=== PATIENT | female | born 1940 | race Caucasian/White ===

== ENCOUNTER 2018-02-20 12:54 | Emergency (ER) | payer MEDICARE, OTHER ==
[~2018-02-20] VITALS: Ht 162.6 cm; Wt 67.1 kg
[2018-02-20] MEDS ORDERED: HYDROCODONE/APAP 5-325MG TABLET PO ONE (14:00)
[2018-02-20] MEDS ORDERED: HYDROCODONE/APAP 5-325MG TABLET ONE (14:10)
--- NOTE | 2018-02-20 14:40 | NUR ---
DR BEEBE SPOKE WITH PATIENT MADE HER AWARE TEST RESULTS.
--- NOTE | 2018-02-20 14:58 | NUR ---
Patient discharged to home in stable conditon. Written and verbal after care instructions given. Patient verbalizes understanding of instructions.
[2018-02-20 15:02] VITALS: BP 111/71
== END 2018-02-20 15:03 | disposition home or self-care (01) ==
LOC: ER 12:54
DX: S39.92XA Unspecified injury of lower back, initial encounter (principal); Z88.0 Allergy status to penicillin; W01.0XXA Fall on same level from slipping, tripping and stumbling without subsequent striking against object, initial encounter; Y93.89 Activity, other specified; Y92.89 Other specified places as the place of occurrence of the external cause; Y99.8 Other external cause status
CPT/HCPCS: 72100; A4663

== ENCOUNTER 2018-10-29 14:34 | Emergency (ER) | payer MEDICARE, OTHER ==
[~2018-10-29] VITALS: Ht 160 cm; Wt 68.9 kg
--- NOTE | 2018-10-29 14:47 | NUR ---
Patient walked in to ER c/o R upper back pain x2 days s/p mechanical fall. Patient states, using her family to translate, that she tripped on a bathroom rug two days ago and fell on her right side. She states she did not seek medical attention. However, she states the pain gradually worsened and states 9/10 pain currently, especially when taking a breath. Vital signs WNL, no acute distress noted, to room 4B.
[2018-10-29] MEDS ORDERED: MORPHINE SULFATE 4 MG/1 ML DISP.SYRIN ONE (15:07)
[2018-10-29] MEDS ORDERED: ONDANSETRON 4 MG/2 ML VIAL ONE (15:08)
[2018-10-29] MEDS ORDERED: LIDOCAINE 5% PATCH TD ONE (15:08)
[2018-10-29] MEDS: ONDANSETRON 4 MG/2 ML VIAL IM ONE (15:11)
[2018-10-29] MEDS: MORPHINE SULFATE 4 MG/1 ML DISP.SYRIN IM ONE (15:11)
[2018-10-29] MEDS: LIDOCAINE 5% PATCH TD ONE (15:11)
--- NOTE | 2018-10-29 16:23 | NUR ---
Patient discharged to home in stable conditon. Written and verbal after care instructions given. Patient verbalizes understanding of instructions.
[2018-10-29 16:24] VITALS: BP 112/67
== END 2018-10-29 16:25 | disposition home or self-care (01) ==
LOC: ER 14:34
DX: S20.211A Contusion of right front wall of thorax, initial encounter (principal); F32.9 Major depressive disorder, single episode, unspecified; F41.9 Anxiety disorder, unspecified; I10 Essential (primary) hypertension; E78.00 Pure hypercholesterolemia, unspecified; Z88.0 Allergy status to penicillin; W01.0XXA Fall on same level from slipping, tripping and stumbling without subsequent striking against object, initial encounter; Y93.89 Activity, other specified; Y92.89 Other specified places as the place of occurrence of the external cause; Y99.8 Other external cause status
CPT/HCPCS: 71101; 96372 ×2; 99283; J2270; J2405; A4663

== ENCOUNTER 2020-02-25 12:46 | Emergency (ER) | payer MEDICARE, OTHER ==
[~2020-02-25] VITALS: Ht 165.1 cm; Wt 68.9 kg
[2020-02-25] MEDS ORDERED: ALBUTEROL SULFATE 8 GM HFA.AER.AD IH PRN (13:30)
[2020-02-25] MEDS ORDERED: LEVO750T46 PO ×2 (13:33)
[2020-02-25] MEDS ORDERED: VENL37.510 PO (13:33)
[2020-02-25] MEDS ORDERED: METH4TAB16 PO (13:33)
[2020-02-25] MEDS ORDERED: AMLO-212 PO (13:33)
[2020-02-25 14:00] LABS: BASOPHILS # (AUTO) 0.1 K/uL (0.0-8.0); BASOPHILS % (AUTO) 1.2 % (0.0-2.0); EOSINOPHILS # (AUTO) 0.1 K/uL (0.0-0.7); EOSINOPHILS % (AUTO) 1.5 % (0.0-7.0); HEMATOCRIT 37.1 % (31.2-41.9); HEMOGLOBIN 12.2 g/dL (10.9-14.3); LYMPHOCYTES # (AUTO) 0.8 K/uL (20.0-40.0); LYMPHOCYTES % (AUTO) 9.8 % (20.5-51.5); MEAN CORPUSCULAR HEMOGLOBIN 30.6 uug (24.7-32.8); MEAN CORPUSCULAR HGB CONC 33 g/dL (32.3-35.6); MEAN CORPUSCULAR VOLUME 93.5 fL (75.5-95.3); MONOCYTES # (AUTO) 0.4 K/uL (2.0-10.0); MONOCYTES % (AUTO) 4.5 % (0.0-11.0); NEUTROPHILS # (AUTO) 6.9 K/uL (1.8-8.9); PLATELET COUNT (AUTO) 180 K/uL (179-408); RED BLOOD CELL COUNT(AUTO) 3.97 MIL/uL (3.63-4.92); WHITE BLOOD COUNT (AUTO) 8.3 K/uL (3.8-11.8)
[2020-02-25 14:03] LABS: CARBON DIOXIDE 25 mmol/L (21-32); CHLORIDE 104 mmol/L (98-107); CREATININE 1.4 mg/dL (0.6-1.3); GLUCOSE 95 mg/dL (74-106); POTASSIUM 3.9 mmol/L (3.5-5.1); UREA NITROGEN, BLOOD 27 mg/dL (7-18)
[2020-02-25 14:16] LABS: ALANINE AMINOTRANSFERASE 21 U/L (14-59); ALKALINE PHOSPHATASE 66 U/L (50-136); ASPARTATE AMINOTRANSFERASE 12 U/L (15-37); BILIRUBIN,DIRECT 0.1 mg/dL (0.0-0.2); BILIRUBIN,TOTAL 0.3 mg/dL (0.2-1.0); TOTAL PROTEIN, SERUM 7.1 g/dL (6.4-8.2)
--- NOTE | 2020-02-25 15:05 | NUR ---
Paged Dr Brown for admit.
--- NOTE | 2020-02-25 17:54 | NUR ---
Patient does not wish to proceed with medical care recommended by Dr. Mckeon). Patient given information related to possible complications, up to and including , which could occur as a result of leaving the hospital at this time. Patient verbalizes understanding of risks involved due to leaving against medical advice. Patient has signed AMA form.
--- NOTE | 2020-02-25 17:54 | NUR ---
IV removed. Catheter intact and site benign. Pressure and 4x4 gauze applied to site. No bleeding noted.
[2020-02-25 17:55] VITALS: BP 149/78
== END 2020-02-25 17:56 | disposition left against medical advice (07) ==
LOC: ER 12:46
DX: B34.9 Viral infection, unspecified (principal); R09.02 Hypoxemia; R06.00 Dyspnea, unspecified; Z20.822 Contact with and (suspected) exposure to COVID-19; Z87.828 Personal history of other (healed) physical injury and trauma; Z90.49 Acquired absence of other specified parts of digestive tract; I11.9 Hypertensive heart disease without heart failure; Z88.0 Allergy status to penicillin; Z79.899 Other long term (current) drug therapy; F41.9 Anxiety disorder, unspecified; F32.9 Major depressive disorder, single episode, unspecified
CPT/HCPCS: 36415; 70030-TC; 71045; 83605; 85025; 85730; 87040; 93005; A4663; J3535; U0003

== ENCOUNTER 2022-07-08 11:20 | Emergency (ER) | payer MEDICARE, OTHER ==
[~2022-07-08] VITALS: Ht 162.6 cm; Wt 67.1 kg
[~2022-07-08 11:20] MED LIST: AMLO-212 PO; LEVO750T46 PO; METH4TAB16 PO; VENL37.510 PO
--- NOTE | 2022-07-08 11:39 | NUR ---
Pt seen by MD for bedside eval. Safety measures in place. Will continue to monitor.
[2022-07-08 12:16] LABS: HEMATOCRIT 36.2 % (31.2-41.9); MEAN CORPUSCULAR HEMOGLOBIN 31.2 uug (24.7-32.8); MEAN CORPUSCULAR VOLUME 93.8 fL (75.5-95.3); PLATELET COUNT (AUTO) 162 K/uL (179-408)
[2022-07-08 12:34] LABS: *BILIRUBIN,URIN NEGATIVE (NEGATIVE); *BLOOD, URINE NEGATIVE (NEGATIVE); *CLARITY,URINE CLEAR (CLEAR); *COLOR,URINE YELLOW (YELLOW); *KETONES,URINE NEGATIVE (NEGATIVE); *UROBILINOGEN,URINE 0.2 E.U./dl (NORMAL); LEUKOCYTE ESTERASE ,URINE NEGATIVE (NEGATIVE); NITRITE, URINE NEGATIVE (NEGATIVE); PH,URINE 6.5 (5.0-8.0); UGLUCOSE NEGATIVE (NEGATIVE)
[2022-07-08 12:47] LABS: CARBON DIOXIDE 29 mmol/L (21-32); CHLORIDE 105 mmol/L (98-107); CREATININE 1.3 mg/dL (0.6-1.3); GLUCOSE 95 mg/dL (74-106); POTASSIUM 4.3 mmol/L (3.5-5.1); UREA NITROGEN, BLOOD 22 mg/dL (7-18)
[2022-07-08 12:53] LABS: ALANINE AMINOTRANSFERASE 21 U/L (14-59); ALKALINE PHOSPHATASE 79 U/L (50-136); ASPARTATE AMINOTRANSFERASE 7 U/L (15-37); BILIRUBIN,DIRECT 0.1 mg/dL (0.0-0.2); BILIRUBIN,TOTAL 0.4 mg/dL (0.2-1.0); LIPASE 166 U/L (73-393); TOTAL PROTEIN, SERUM 6.9 g/dL (6.4-8.2)
[2022-07-08] MEDS ORDERED: HYDROCODONE/APAP 5-325MG TABLET PO ONE (13:30)
[2022-07-08] MEDS ORDERED: ACETAMINOPHEN/CODEINE 300-30 MG TABLET ONE (13:42)
[2022-07-08] MEDS ORDERED: ACETAMINOPHEN/CODEINE 300-30 MG TABLET PO ONE (13:45)
[2022-07-08] MEDS ORDERED: ACET1TAB23 PO (14:15)
--- NOTE | 2022-07-08 15:09 | NUR ---
Patient discharged to home in stable condition. Written and verbal after care instructions given. Patient verbalizes understanding of instructions. Gave pt report of CT scan. Stressed follow up or return to ER for worsening s/s.
[2022-07-08 15:10] VITALS: BP 115/75
== END 2022-07-08 15:10 | disposition home or self-care (01) ==
LOC: ER 11:20
DX: M54.50 Low back pain, unspecified (principal); R10.9 Unspecified abdominal pain; R07.89 Other chest pain; I10 Essential (primary) hypertension; F17.210 Nicotine dependence, cigarettes, uncomplicated; Z86.2 Personal history of diseases of the blood and blood-forming organs and certain disorders involving the immune mechanism; Z88.0 Allergy status to penicillin; Z79.2 Long term (current) use of antibiotics; Z79.899 Other long term (current) drug therapy
CPT/HCPCS: 36415; 71045; 83690; 85025; A4663

== ENCOUNTER 2022-10-11 20:11 | Inpatient (IN) | payer MEDICARE, OTHER ==
[~2022-10-11] VITALS: Ht 154.9 cm; Wt 65.8 kg
[~2022-10-11 20:11] MED LIST changes: +ACET1TAB23 PO
[2022-10-11] MEDS ORDERED: MAGNESIUM SULFATE 2 GM in IV DEXTROSE 5% 100 ML IV ONE (21:30)
[2022-10-11] MEDS ORDERED: IPRATROPIUM BROMIDE 0.5 MG/2.5 ML NEBU NEB ONE (21:30)
[2022-10-11] MEDS ORDERED: ALBUTEROL SULFATE 2.5 MG/3 ML NEBU NEB ONE (21:30)
[2022-10-11] MEDS ORDERED: IV NORMAL SALINE 1000 ML BAG IV ONE (21:30)
[2022-10-11] MEDS ORDERED: MAGNESIUM SULFATE/D5W 200 ML ONE (21:36)
[2022-10-11] MEDS ORDERED: ALBUTEROL SULFATE 2.5 MG/3 ML NEBU ONE (21:43)
[2022-10-11] MEDS ORDERED: IPRATROPIUM BROMIDE 0.5 MG/2.5 ML NEBU ONE (21:43)
[2022-10-11 21:53] LABS: BASOPHILS % (AUTO) 0.5 % (0.0-2.0); EOSINOPHILS # (AUTO) 0.2 K/uL (0.0-0.7); EOSINOPHILS % (AUTO) 2.3 % (0.0-7.0); HEMATOCRIT 35.6 % (31.2-41.9); HEMOGLOBIN 11.9 g/dL (10.9-14.3); LYMPHOCYTES # (AUTO) 1.8 K/uL (0.8-4.8); LYMPHOCYTES % (AUTO) 23.2 % (20.5-51.5); MEAN CORPUSCULAR HEMOGLOBIN 30.9 uug (24.7-32.8); MEAN CORPUSCULAR HGB CONC 34 g/dL (32.3-35.6); MEAN CORPUSCULAR VOLUME 92.2 fL (75.5-95.3); MONOCYTES # (AUTO) 0.5 K/uL (0.1-1.30); MONOCYTES % (AUTO) 6.2 % (0.0-11.0); NEUTROPHILS # (AUTO) 5.4 K/uL (1.8-8.9); NEUTROPHILS % (AUTO) 67.8 % (38.5-71.5); PLATELET COUNT (AUTO) 161 K/uL (179-408); RED BLOOD CELL COUNT(AUTO) 3.86 MIL/uL (3.63-4.92)
[2022-10-11 22:05] LABS: DIFFERENTIAL COMMENT 1
[2022-10-11 22:14] LABS: CALCIUM 8.7 mg/dL (8.5-10.1); CARBON DIOXIDE 31 mmol/L (21-32); CHLORIDE 104 mmol/L (98-107); CREATININE 1.5 mg/dL (0.6-1.3); GLUCOSE 107 mg/dL (74-106); POTASSIUM 4.3 mmol/L (3.5-5.1); SODIUM SERUM 140 mmol/L (136-145); UREA NITROGEN, BLOOD 24 mg/dL (7-18)
[2022-10-11 22:27] LABS: NT-PRO BNP 672 pg/mL (0-125)
[2022-10-11 22:55] VITALS: O2SAT 98
[2022-10-12] MEDS ORDERED: ONDANSETRON 4 MG/2 ML VIAL IV PRN (02:15)
[2022-10-12] MEDS ORDERED: levoFLOXacin 500 MG/D5W 500 MG in PREMIXED 1 EACH IV ONE (02:15)
[2022-10-12] MEDS ORDERED: MORPHINE SULFATE 2 MG/1 ML DISP.SYRIN IV PRN (02:15)
[2022-10-12 02:47] VITALS: BP 135/69; TEMP 98.1; O2SAT 94
[2022-10-12] MEDS ORDERED: IPRATROPIUM BROMIDE 0.5 MG/2.5 ML NEBU NEB PRN (03:00)
[2022-10-12] MEDS ORDERED: ALBUTEROL SULFATE 2.5 MG/3 ML NEBU NEB PRN (03:00)
[2022-10-12] MEDS ORDERED: levoFLOXacin 500 MG/D5W 100 ML ONE (03:01)
[2022-10-12] MEDS: methylPREDNISolone SOD SUCC 40 MG/ML VIAL IV SCH ×3 (06:25→21:44)
[2022-10-12 07:01] LABS: BASOPHILS % (AUTO) 0.3 % (0.0-2.0); EOSINOPHILS # (AUTO) 0.1 K/uL (0.0-0.7); HEMATOCRIT 34.9 % (31.2-41.9); HEMOGLOBIN 11.6 g/dL (10.9-14.3); LYMPHOCYTES # (AUTO) 1.6 K/uL (0.8-4.8); LYMPHOCYTES % (AUTO) 23.7 % (20.5-51.5); MEAN CORPUSCULAR HEMOGLOBIN 30.9 uug (24.7-32.8); MEAN CORPUSCULAR HGB CONC 33 g/dL (32.3-35.6); MEAN CORPUSCULAR VOLUME 93.1 fL (75.5-95.3); MONOCYTES # (AUTO) 0.5 K/uL (0.1-1.30); MONOCYTES % (AUTO) 7.5 % (0.0-11.0); NEUTROPHILS # (AUTO) 4.5 K/uL (1.8-8.9); NEUTROPHILS % (AUTO) 66.5 % (38.5-71.5); PLATELET COUNT (AUTO) 164 K/uL (179-408); RED BLOOD CELL COUNT(AUTO) 3.74 MIL/uL (3.63-4.92); RED CELL DISTRIBUTION WIDTH 14.8 % (12.3-17.7); WHITE BLOOD COUNT (AUTO) 6.8 K/uL (3.8-11.8)
[2022-10-12 07:08] LABS: DIFFERENTIAL COMMENT 1
[2022-10-12 07:36] LABS: ALANINE AMINOTRANSFERASE 16 U/L (14-59); ALBUMIN 3.1 g/dL (3.4-5.0); ALKALINE PHOSPHATASE 69 U/L (50-136); ASPARTATE AMINOTRANSFERASE 8 U/L (15-37); BILIRUBIN,TOTAL 0.3 mg/dL (0.2-1.0); CALCIUM 8.2 mg/dL (8.5-10.1); CARBON DIOXIDE 30 mmol/L (21-32); CHLORIDE 108 mmol/L (98-107); CREATININE 1.2 mg/dL (0.6-1.3); GLUCOSE 110 mg/dL (74-106); MAGNESIUM 2.5 mg/dL (1.8-2.4); PHOSPHOROUS 3.5 mg/dL (2.5-4.9); POTASSIUM 4.1 mmol/L (3.5-5.1); SODIUM SERUM 145 mmol/L (136-145); TOTAL PROTEIN, SERUM 6.5 g/dL (6.4-8.2); UREA NITROGEN, BLOOD 18 mg/dL (7-18)
[2022-10-12] MEDS ORDERED: FUROSEMIDE 20 MG/2 ML VIAL IV ONE (08:15)
[2022-10-12 08:25] VITALS: O2SAT 97
[2022-10-12] MEDS: DILTIAZEM HCL CD 120 MG CAP.SR.24H PO SCH (08:38)
[2022-10-12] MEDS ORDERED: NEBI10TA2 PO (11:08)
[2022-10-12] MEDS ORDERED: PANT40TA49 PO (11:08)
[2022-10-12] MEDS ORDERED: BUPR150T10 PO (11:08)
[2022-10-12] MEDS ORDERED: FAMO20TA8 PO (11:08)
[2022-10-12] MEDS ORDERED: PRAM0.253 PO (11:08)
[2022-10-12] MEDS ORDERED: FOLI1TAB94 PO (11:08)
[2022-10-12] MEDS ORDERED: HC A30CR11 RC (11:08)
[2022-10-12] MEDS ORDERED: MONT10TA33 PO (11:08)
[2022-10-12] MEDS ORDERED: GUAI-791 PO (11:08)
[2022-10-12] MEDS ORDERED: BENZ200C53 PO (11:08)
[2022-10-12] MEDS ORDERED: BUPR-96 PO (11:35)
[2022-10-12] MEDS ORDERED: VENL37.55 PO (11:37)
[2022-10-12 11:52] VITALS: BP 118/61; TEMP 98.8; O2SAT 98
[2022-10-12] MEDS: VENLAFAXINE XR 75 MG TAB.ER.24H PO SCH (12:43)
[2022-10-12 13:25] LABS: THYROID STIMULATING HORMONE 2.379 mIU/mL (0.358-3.740)
[2022-10-12 16:27] VITALS: BP 136/60; TEMP 97.8; O2SAT 97
[2022-10-12] MEDS: MONTELUKAST SODIUM 10 MG TABLET PO SCH (17:47)
[2022-10-12] MEDS: ACETAMINOPHEN 325 MG TABLET PO PRN (17:47)
[2022-10-12] MEDS ORDERED: CARVEDILOL 3.125 MG TABLET PO SCH (18:00)
[2022-10-12 20:30] VITALS: BP 103/55; TEMP 98.7; O2SAT 96
[2022-10-12] MEDS: FAMOTIDINE 20 MG TABLET PO SCH (21:43)
[2022-10-12] MEDS: PRAMIPEXOLE 0.25 MG TABLET PO SCH (21:43)
[2022-10-13] VITALS (8 sets, daily range): BP systolic 100–146; BP diastolic 50–73; TEMP 97.5–98.4; O2SAT 96–98
[2022-10-13] MEDS ORDERED: ZOLPIDEM 5 MG TABLET PO PRN
[2022-10-13] MEDS: levoFLOXacin 250MG /D5W 50 ML IV SCH (05:53)
[2022-10-13] MEDS: methylPREDNISolone SOD SUCC 40 MG/ML VIAL IV SCH ×3 (05:53→21:00)
[2022-10-13] MEDS: PANTOPRAZOLE SODIUM 40 MG TABLET.DR PO SCH (06:13)
[2022-10-13 06:54] LABS: HEMATOCRIT 36.7 % (31.2-41.9); HEMOGLOBIN 12.1 g/dL (10.9-14.3); LYMPHOCYTES # (AUTO) 0.8 K/uL (0.8-4.8); LYMPHOCYTES % (AUTO) 7.5 % (20.5-51.5); MEAN CORPUSCULAR HEMOGLOBIN 30.7 uug (24.7-32.8); MEAN CORPUSCULAR HGB CONC 33 g/dL (32.3-35.6); MONOCYTES # (AUTO) 0.2 K/uL (0.1-1.30); MONOCYTES % (AUTO) 1.4 % (0.0-11.0); NEUTROPHILS # (AUTO) 10.1 K/uL (1.8-8.9); NEUTROPHILS % (AUTO) 91.1 % (38.5-71.5); PLATELET COUNT (AUTO) 187 K/uL (179-408); RED BLOOD CELL COUNT(AUTO) 3.95 MIL/uL (3.63-4.92); RED CELL DISTRIBUTION WIDTH 15.2 % (12.3-17.7); WHITE BLOOD COUNT (AUTO) 11.1 K/uL (3.8-11.8)
[2022-10-13 07:05] LABS: DIFFERENTIAL COMMENT 1
[2022-10-13 07:14] LABS: ALANINE AMINOTRANSFERASE 15 U/L (14-59); ALBUMIN 3.1 g/dL (3.4-5.0); ALKALINE PHOSPHATASE 69 U/L (50-136); ASPARTATE AMINOTRANSFERASE < 5 U/L (15-37); BILIRUBIN,TOTAL 0.2 mg/dL (0.2-1.0); CALCIUM 9.2 mg/dL (8.5-10.1); CARBON DIOXIDE 28 mmol/L (21-32); CHLORIDE 105 mmol/L (98-107); CREATINE KINASE, TOTAL 30 U/L (26-192); CREATININE 1.6 mg/dL (0.6-1.3); GLUCOSE 156 mg/dL (74-106); MAGNESIUM 2.6 mg/dL (1.8-2.4); PHOSPHOROUS 3.7 mg/dL (2.5-4.9); POTASSIUM 4.6 mmol/L (3.5-5.1); SODIUM SERUM 141 mmol/L (136-145); TOTAL PROTEIN, SERUM 6.6 g/dL (6.4-8.2); UREA NITROGEN, BLOOD 31 mg/dL (7-18)
[2022-10-13] MEDS: buPROPion XL 150 MG TAB.SR.24H PO SCH (08:46)
[2022-10-13] MEDS: DILTIAZEM HCL CD 120 MG CAP.SR.24H PO SCH (08:46)
[2022-10-13] MEDS: VENLAFAXINE XR 75 MG TAB.ER.24H PO SCH (08:46)
[2022-10-13] MEDS ORDERED: VENLAFAXINE XR 37.5 MG CAP.SR.24H PO SCH (09:00)
[2022-10-13] MEDS ORDERED: AMLODIPINE 5 MG TABLET PO SCH (09:00)
[2022-10-13] MEDS ORDERED: levoFLOXacin 250MG /D5W 50 ML IV SCH (09:00)
[2022-10-13] MEDS: MONTELUKAST SODIUM 10 MG TABLET PO SCH (18:05)
[2022-10-13] MEDS: FAMOTIDINE 20 MG TABLET PO SCH (20:50)
[2022-10-13] MEDS: PRAMIPEXOLE 0.25 MG TABLET PO SCH (20:50)
[2022-10-13] MEDS: ACETAMINOPHEN 325 MG TABLET PO PRN (21:14)
[2022-10-14 04:00] VITALS: BP 120/53; TEMP 98.5; O2SAT 97
[2022-10-14] MEDS: methylPREDNISolone SOD SUCC 40 MG/ML VIAL IV SCH ×3 (05:37→14:21)
[2022-10-14] MEDS: levoFLOXacin 250MG /D5W 50 ML IV SCH (05:37)
[2022-10-14 06:06] LABS: PTH, INTACT 38 pg/mL (15-65)
[2022-10-14] MEDS: PANTOPRAZOLE SODIUM 40 MG TABLET.DR PO SCH (06:08)
[2022-10-14 07:05] LABS: BASOPHILS % (AUTO) 0.1 % (0.0-2.0); HEMOGLOBIN 11.5 g/dL (10.9-14.3); LYMPHOCYTES # (AUTO) 0.9 K/uL (0.8-4.8); LYMPHOCYTES % (AUTO) 6.8 % (20.5-51.5); MEAN CORPUSCULAR HEMOGLOBIN 30.8 uug (24.7-32.8); MEAN CORPUSCULAR HGB CONC 33 g/dL (32.3-35.6); MEAN CORPUSCULAR VOLUME 93.4 fL (75.5-95.3); MONOCYTES # (AUTO) 0.3 K/uL (0.1-1.30); NEUTROPHILS # (AUTO) 12.3 K/uL (1.8-8.9); NEUTROPHILS % (AUTO) 91.1 % (38.5-71.5); PLATELET COUNT (AUTO) 193 K/uL (179-408); RED BLOOD CELL COUNT(AUTO) 3.74 MIL/uL (3.63-4.92); RED CELL DISTRIBUTION WIDTH 14.9 % (12.3-17.7); WHITE BLOOD COUNT (AUTO) 13.5 K/uL (3.8-11.8)
[2022-10-14 07:11] LABS: DIFFERENTIAL COMMENT 1
[2022-10-14 07:32] LABS: CALCIUM 8.6 mg/dL (8.5-10.1); CARBON DIOXIDE 28 mmol/L (21-32); CHLORIDE 106 mmol/L (98-107); CREATININE 1.5 mg/dL (0.6-1.3); GLUCOSE 142 mg/dL (74-106); MAGNESIUM 2.4 mg/dL (1.8-2.4); SODIUM SERUM 141 mmol/L (136-145); UREA NITROGEN, BLOOD 40 mg/dL (7-18)
[2022-10-14] MEDS ORDERED: methylPREDNISolone SOD SUCC IV (07:41)
[2022-10-14] MEDS ORDERED: LEVO250P3 IV (07:41)
[2022-10-14] MEDS ORDERED: ALBU2.5V7 NEB (07:41)
[2022-10-14] MEDS ORDERED: DILT120C87 PO (07:41)
[2022-10-14] MEDS ORDERED: IPRA0.2S6 NEB (07:41)
[2022-10-14] MEDS: buPROPion XL 150 MG TAB.SR.24H PO SCH (10:53)
[2022-10-14] MEDS: VENLAFAXINE XR 75 MG TAB.ER.24H PO SCH (10:53)
[2022-10-14] MEDS: DILTIAZEM HCL CD 120 MG CAP.SR.24H PO SCH (10:56)
[2022-10-14 11:26] VITALS: BP 127/61; TEMP 98.1; O2SAT 97
[2022-10-14 12:07] LABS: ALBUMIN 3.1 g/dL (2.9-4.4); ALPHA-1-GLOBULIN 0.2 g/dL (0.0-0.4); ALPHA-2-GLOBULIN 0.9 g/dL (0.4-1.0); GAMMA GLOBULIN 0.9 g/dL (0.4-1.8); M-SPIKE Not Observed g/dL (Not Observed)
[2022-10-14 15:10] VITALS: BP 127/57; TEMP 98.4; O2SAT 96
[2022-10-14] MEDS ORDERED: TEMAZEPAM 15 MG CAPSULE PO PRN (21:00)
[2022-10-15] MEDS ORDERED: VENL75CA62 PO (08:35)
== END 2022-10-14 15:40 | DRG 193 ==
LOC: ER 20:11 → TELE3 23:15 → MEDSURG3 10-13 10:35
PROVIDERS: ADMIT Nurse Practitioner Acute Care; ATTEND Nurse Practitioner Acute Care
DX: J15.9 Unspecified bacterial pneumonia (principal); I50.33 Acute on chronic diastolic (congestive) heart failure; J96.20 Acute and chronic respiratory failure, unspecified whether with hypoxia or hypercapnia; N17.0 Acute kidney failure with tubular necrosis; J44.0 Chronic obstructive pulmonary disease with (acute) lower respiratory infection; J44.1 Chronic obstructive pulmonary disease with (acute) exacerbation; F17.210 Nicotine dependence, cigarettes, uncomplicated; Z99.81 Dependence on supplemental oxygen; J20.9 Acute bronchitis, unspecified; I11.0 Hypertensive heart disease with heart failure; D69.6 Thrombocytopenia, unspecified; F41.9 Anxiety disorder, unspecified; Z90.49 Acquired absence of other specified parts of digestive tract; E78.5 Hyperlipidemia, unspecified; N18.9 Chronic kidney disease, unspecified; F32.A Depression, unspecified; Z20.822 Contact with and (suspected) exposure to COVID-19
CPT/HCPCS: 36415; 71045; 83605; 83735; 83970; 84100; 84155; 84165; 84443; 84484; 85025; 93005; 93307; A4663; G0378; J1940; J1956; J2920; J3475; J3590; J7040

== ENCOUNTER 2022-10-14 15:03 | Inpatient (IN) | payer MEDICARE, OTHER ==
[~2022-10-14] VITALS: Ht 154.9 cm; Wt 68.0 kg
[~2022-10-14 15:03] MED LIST changes: +ALBU2.5V7 NEB; +BENZ200C53 PO; +BUPR-96 PO; +DILT120C87 PO; +FAMO20TA8 PO; +FOLI1TAB94 PO; +GUAI-791 PO; +HC A30CR11 RC; +IPRA0.2S6 NEB; +LEVO250P3 IV; -LEVO750T46 PO; -METH4TAB16 PO; +MONT10TA33 PO; +NEBI10TA2 PO; +PANT40TA49 PO; +PRAM0.253 PO; -VENL37.510 PO; +VENL37.55 PO; +methylPREDNISolone SOD SUCC IV
[2022-10-14 20:00] VITALS: BP 126/49; TEMP 98; O2SAT 93
[2022-10-14] MEDS ORDERED: REMEDY ESSENTIAL ZINC PASTE 113 GM TOP PRN (21:30)
[2022-10-14 22:46] VITALS: BP 126/49; TEMP 98; O2SAT 93
[2022-10-15] VITALS (8 sets, daily range): BP systolic 119–147; BP diastolic 52–72; TEMP 97.6–98.1; O2SAT 93–99
[2022-10-15] MEDS: PRAMIPEXOLE 1 MG TABLET PO SCH ×2 (00:35→20:39)
[2022-10-15] MEDS ORDERED: ACETAMINOPHEN 325 MG TABLET PO PRN (01:00)
[2022-10-15] MEDS: PANTOPRAZOLE SODIUM 40 MG TABLET.DR PO SCH (06:52)
[2022-10-15] MEDS ORDERED: VENL75CA62 PO (08:35)
[2022-10-15] MEDS: VENLAFAXINE XR 75 MG TAB.ER.24H PO SCH (09:00)
[2022-10-15] MEDS: BENZONATATE 100 MG CAPSULE PO SCH ×3 (09:00→17:07)
[2022-10-15] MEDS: MONTELUKAST SODIUM 10 MG TABLET PO SCH (09:00)
[2022-10-15] MEDS: FOLIC ACID 1 MG TABLET PO SCH (09:00)
[2022-10-15] MEDS: buPROPion XL 150 MG TAB.SR.24H PO SCH (09:00)
[2022-10-15] MEDS: DILTIAZEM HCL CD 120 MG CAP.SR.24H PO SCH (14:21)
[2022-10-15] MEDS: levoFLOXacin 250 MG TABLET PO SCH (14:32)
[2022-10-15] MEDS ORDERED: ALBUTEROL SULFATE 2.5 MG/3 ML NEBU NEB PRN (16:30)
[2022-10-15] MEDS ORDERED: IPRATROPIUM BROMIDE 0.5 MG/2.5 ML NEBU NEB PRN (16:30)
[2022-10-15] MEDS: predniSONE 20 MG TABLET PO SCH (18:01)
[2022-10-15] MEDS: ALBUTEROL SULFATE 2.5 MG/3 ML NEBU NEB SCH (20:56)
[2022-10-15] MEDS: IPRATROPIUM BROMIDE 0.5 MG/2.5 ML NEBU NEB SCH (20:56)
[2022-10-16] VITALS (11 sets, daily range): BP systolic 105–152; BP diastolic 49–66; TEMP 97.6–98.6; O2SAT 91–99
[2022-10-16] MEDS: PANTOPRAZOLE SODIUM 40 MG TABLET.DR PO SCH (06:11)
[2022-10-16] MEDS: levoFLOXacin 250 MG TABLET PO SCH (06:11)
[2022-10-16 06:28] LABS: BASOPHILS % (AUTO) 0.1 % (0.0-2.0); HEMATOCRIT 35.3 % (31.2-41.9); HEMOGLOBIN 11.6 g/dL (10.9-14.3); LYMPHOCYTES # (AUTO) 0.9 K/uL (0.8-4.8); LYMPHOCYTES % (AUTO) 9.4 % (20.5-51.5); MEAN CORPUSCULAR HEMOGLOBIN 30.8 uug (24.7-32.8); MEAN CORPUSCULAR HGB CONC 33 g/dL (32.3-35.6); MEAN CORPUSCULAR VOLUME 93.4 fL (75.5-95.3); MONOCYTES # (AUTO) 0.5 K/uL (0.1-1.30); MONOCYTES % (AUTO) 5.7 % (0.0-11.0); NEUTROPHILS # (AUTO) 7.9 K/uL (1.8-8.9); NEUTROPHILS % (AUTO) 84.8 % (38.5-71.5); PLATELET COUNT (AUTO) 195 K/uL (179-408); RED BLOOD CELL COUNT(AUTO) 3.78 MIL/uL (3.63-4.92); RED CELL DISTRIBUTION WIDTH 14.9 % (12.3-17.7); WHITE BLOOD COUNT (AUTO) 9.3 K/uL (3.8-11.8)
[2022-10-16 06:37] LABS: CALCIUM 8.7 mg/dL (8.5-10.1); CARBON DIOXIDE 30 mmol/L (21-32); CHLORIDE 105 mmol/L (98-107); CREATININE 1.4 mg/dL (0.6-1.3); GLUCOSE 111 mg/dL (74-106); MAGNESIUM 2.3 mg/dL (1.8-2.4); PHOSPHOROUS 3.7 mg/dL (2.5-4.9); POTASSIUM 4.7 mmol/L (3.5-5.1); SODIUM SERUM 140 mmol/L (136-145); UREA NITROGEN, BLOOD 34 mg/dL (7-18)
[2022-10-16 06:44] LABS: DIFFERENTIAL COMMENT 1
[2022-10-16 08:20] LABS: ABG BASE EXCESS 3.7 mmol/L; ABG HCO3 29.6 mmol/L; ABG PCO2 49.9 mmHg (35.0-45.0); ABG PH 7.391 (7.350-7.450); ABG PO2 72.6 mmHg (75.0-100.0); ABG SITE RIGHT RADIAL; COHb 0.7 % (0.5-1.5); MetHb 0.1 % (0.0-1.5); O2Hb 94.1 % (94.0-97.0); VENT MODE Nasal Cannula
[2022-10-16] MEDS: IPRATROPIUM BROMIDE 0.5 MG/2.5 ML NEBU NEB SCH ×3 (08:30→20:28)
[2022-10-16] MEDS: ALBUTEROL SULFATE 2.5 MG/3 ML NEBU NEB SCH ×3 (08:30→20:28)
[2022-10-16] MEDS: BENZONATATE 100 MG CAPSULE PO SCH ×3 (08:52→17:05)
[2022-10-16] MEDS: MONTELUKAST SODIUM 10 MG TABLET PO SCH (08:54)
[2022-10-16] MEDS: VENLAFAXINE XR 75 MG TAB.ER.24H PO SCH (08:54)
[2022-10-16] MEDS: buPROPion XL 150 MG TAB.SR.24H PO SCH (08:54)
[2022-10-16] MEDS: FOLIC ACID 1 MG TABLET PO SCH (08:54)
[2022-10-16] MEDS: predniSONE 20 MG TABLET PO SCH ×2 (08:55→18:38)
[2022-10-16] MEDS: DILTIAZEM HCL CD 120 MG CAP.SR.24H PO SCH (09:03)
[2022-10-16] MEDS: PRAMIPEXOLE 1 MG TABLET PO SCH (20:38)
[2022-10-17] VITALS (13 sets, daily range): BP systolic 115–152; BP diastolic 56–79; TEMP 97.6–98.7; O2SAT 92–100
[2022-10-17] MEDS: levoFLOXacin 250 MG TABLET PO SCH (06:09)
[2022-10-17] MEDS: PANTOPRAZOLE SODIUM 40 MG TABLET.DR PO SCH (06:09)
[2022-10-17] MEDS: ALBUTEROL SULFATE 2.5 MG/3 ML NEBU NEB SCH ×3 (07:37→20:03)
[2022-10-17] MEDS: IPRATROPIUM BROMIDE 0.5 MG/2.5 ML NEBU NEB SCH ×3 (07:37→20:03)
[2022-10-17] MEDS: BENZONATATE 100 MG CAPSULE PO SCH ×3 (08:35→16:04)
[2022-10-17] MEDS: DILTIAZEM HCL CD 120 MG CAP.SR.24H PO SCH (08:35)
[2022-10-17] MEDS: MONTELUKAST SODIUM 10 MG TABLET PO SCH (08:36)
[2022-10-17] MEDS: buPROPion XL 150 MG TAB.SR.24H PO SCH (08:36)
[2022-10-17] MEDS: FOLIC ACID 1 MG TABLET PO SCH (08:36)
[2022-10-17] MEDS: VENLAFAXINE XR 75 MG TAB.ER.24H PO SCH (08:36)
[2022-10-17] MEDS: predniSONE 20 MG TABLET PO SCH ×2 (08:37→17:16)
[2022-10-17] MEDS: PRAMIPEXOLE 1 MG TABLET PO SCH (20:53)
[2022-10-18] VITALS (12 sets, daily range): BP systolic 124–137; BP diastolic 61–83; TEMP 98.1–98.8; O2SAT 91–99
[2022-10-18] MEDS: levoFLOXacin 250 MG TABLET PO SCH (05:29)
[2022-10-18] MEDS: PANTOPRAZOLE SODIUM 40 MG TABLET.DR PO SCH (06:24)
[2022-10-18] MEDS: ALBUTEROL SULFATE 2.5 MG/3 ML NEBU NEB SCH ×3 (07:23→19:44)
[2022-10-18] MEDS: IPRATROPIUM BROMIDE 0.5 MG/2.5 ML NEBU NEB SCH ×3 (07:23→19:43)
[2022-10-18] MEDS: predniSONE 20 MG TABLET PO SCH ×2 (08:35→17:15)
[2022-10-18] MEDS: buPROPion XL 150 MG TAB.SR.24H PO SCH (08:35)
[2022-10-18] MEDS: VENLAFAXINE XR 75 MG TAB.ER.24H PO SCH (08:35)
[2022-10-18] MEDS: BENZONATATE 100 MG CAPSULE PO SCH ×3 (08:36→17:15)
[2022-10-18] MEDS: FOLIC ACID 1 MG TABLET PO SCH (08:36)
[2022-10-18] MEDS: MONTELUKAST SODIUM 10 MG TABLET PO SCH (08:36)
[2022-10-18] MEDS: DILTIAZEM HCL CD 120 MG CAP.SR.24H PO SCH (08:38)
[2022-10-18] MEDS: ACETYLCYSTEINE 20% 800 MG/4 ML VIAL NEB SCH (19:44)
[2022-10-18] MEDS ORDERED: REMEDY ESSENTIAL ZINC PASTE 113 GM TOP PRN (20:15)
[2022-10-18] MEDS: PRAMIPEXOLE 1 MG TABLET PO SCH (21:54)
[2022-10-19] VITALS (9 sets, daily range): BP systolic 123–149; BP diastolic 60–74; TEMP 97.7–98.8; O2SAT 90–100
[2022-10-19] MEDS: PANTOPRAZOLE SODIUM 40 MG TABLET.DR PO SCH (06:23)
[2022-10-19] MEDS: levoFLOXacin 250 MG TABLET PO SCH (06:23)
[2022-10-19] MEDS: ALBUTEROL SULFATE 2.5 MG/3 ML NEBU NEB SCH ×4 (07:00→19:30)
[2022-10-19] MEDS: IPRATROPIUM BROMIDE 0.5 MG/2.5 ML NEBU NEB SCH ×4 (07:00→19:30)
[2022-10-19] MEDS: ACETYLCYSTEINE 20% 800 MG/4 ML VIAL NEB SCH ×2 (07:00→19:30)
[2022-10-19 07:34] LABS: BASOPHILS % (AUTO) 0.1 % (0.0-2.0); HEMATOCRIT 34.9 % (31.2-41.9); HEMOGLOBIN 11.4 g/dL (10.9-14.3); LYMPHOCYTES # (AUTO) 1.3 K/uL (0.8-4.8); LYMPHOCYTES % (AUTO) 9.8 % (20.5-51.5); MEAN CORPUSCULAR HEMOGLOBIN 30.6 uug (24.7-32.8); MEAN CORPUSCULAR HGB CONC 33 g/dL (32.3-35.6); MEAN CORPUSCULAR VOLUME 93.5 fL (75.5-95.3); MONOCYTES # (AUTO) 0.8 K/uL (0.1-1.30); MONOCYTES % (AUTO) 6.2 % (0.0-11.0); NEUTROPHILS # (AUTO) 10.9 K/uL (1.8-8.9); NEUTROPHILS % (AUTO) 83.9 % (38.5-71.5); PLATELET COUNT (AUTO) 186 K/uL (179-408); RED BLOOD CELL COUNT(AUTO) 3.73 MIL/uL (3.63-4.92); RED CELL DISTRIBUTION WIDTH 14.8 % (12.3-17.7)
[2022-10-19 07:36] LABS: DIFFERENTIAL COMMENT 1
[2022-10-19 07:53] LABS: CALCIUM 8.9 mg/dL (8.5-10.1); CARBON DIOXIDE 32 mmol/L (21-32); CHLORIDE 105 mmol/L (98-107); CREATININE 1.4 mg/dL (0.6-1.3); GLUCOSE 116 mg/dL (74-106); MAGNESIUM 2.5 mg/dL (1.8-2.4); PHOSPHOROUS 3.8 mg/dL (2.5-4.9); POTASSIUM 4.5 mmol/L (3.5-5.1); SODIUM SERUM 140 mmol/L (136-145); UREA NITROGEN, BLOOD 36 mg/dL (7-18)
[2022-10-19] MEDS: buPROPion XL 150 MG TAB.SR.24H PO SCH (08:56)
[2022-10-19] MEDS: MONTELUKAST SODIUM 10 MG TABLET PO SCH (08:56)
[2022-10-19] MEDS: VENLAFAXINE XR 75 MG TAB.ER.24H PO SCH (08:56)
[2022-10-19] MEDS: FOLIC ACID 1 MG TABLET PO SCH (08:56)
[2022-10-19] MEDS: predniSONE 20 MG TABLET PO SCH ×2 (08:56→17:31)
[2022-10-19] MEDS: BENZONATATE 100 MG CAPSULE PO SCH ×3 (08:57→17:31)
[2022-10-19] MEDS: DILTIAZEM HCL CD 120 MG CAP.SR.24H PO SCH (08:57)
[2022-10-19] MEDS: PRAMIPEXOLE 1 MG TABLET PO SCH (21:07)
[2022-10-20] VITALS (9 sets, daily range): BP systolic 115–149; BP diastolic 62–69; TEMP 97.7–98.2; O2SAT 91–100
[2022-10-20] MEDS: PANTOPRAZOLE SODIUM 40 MG TABLET.DR PO SCH (06:16)
[2022-10-20] MEDS: ACETYLCYSTEINE 20% 800 MG/4 ML VIAL NEB SCH ×2 (07:21→19:30)
[2022-10-20] MEDS: IPRATROPIUM BROMIDE 0.5 MG/2.5 ML NEBU NEB SCH ×3 (07:21→19:30)
[2022-10-20] MEDS: ALBUTEROL SULFATE 2.5 MG/3 ML NEBU NEB SCH ×3 (07:21→19:30)
[2022-10-20] MEDS: predniSONE 20 MG TABLET PO SCH ×2 (08:50→17:34)
[2022-10-20] MEDS: VENLAFAXINE XR 75 MG TAB.ER.24H PO SCH (08:51)
[2022-10-20] MEDS: MONTELUKAST SODIUM 10 MG TABLET PO SCH (08:51)
[2022-10-20] MEDS: DILTIAZEM HCL CD 120 MG CAP.SR.24H PO SCH (08:51)
[2022-10-20] MEDS: buPROPion XL 150 MG TAB.SR.24H PO SCH (08:51)
[2022-10-20] MEDS: FOLIC ACID 1 MG TABLET PO SCH (08:51)
[2022-10-20] MEDS: BENZONATATE 100 MG CAPSULE PO SCH ×3 (08:51→17:35)
[2022-10-20] MEDS: PRAMIPEXOLE 1 MG TABLET PO SCH (20:33)
[2022-10-21] VITALS (12 sets, daily range): BP systolic 107–150; BP diastolic 57–76; TEMP 97.6–98; O2SAT 92–100
[2022-10-21] MEDS: PANTOPRAZOLE SODIUM 40 MG TABLET.DR PO SCH (06:47)
[2022-10-21] MEDS: predniSONE 20 MG TABLET PO SCH (07:52)
[2022-10-21] MEDS: ALBUTEROL SULFATE 2.5 MG/3 ML NEBU NEB SCH ×3 (07:56→21:33)
[2022-10-21] MEDS: ACETYLCYSTEINE 20% 800 MG/4 ML VIAL NEB SCH ×2 (07:56→21:33)
[2022-10-21] MEDS: IPRATROPIUM BROMIDE 0.5 MG/2.5 ML NEBU NEB SCH ×3 (07:56→21:32)
[2022-10-21] MEDS: buPROPion XL 150 MG TAB.SR.24H PO SCH (09:05)
[2022-10-21] MEDS: FOLIC ACID 1 MG TABLET PO SCH (09:07)
[2022-10-21] MEDS: VENLAFAXINE XR 75 MG TAB.ER.24H PO SCH (09:07)
[2022-10-21] MEDS: BENZONATATE 100 MG CAPSULE PO SCH ×3 (09:07→17:09)
[2022-10-21] MEDS: MONTELUKAST SODIUM 10 MG TABLET PO SCH (09:07)
[2022-10-21] MEDS: DILTIAZEM HCL CD 120 MG CAP.SR.24H PO SCH (09:11)
[2022-10-21] MEDS ORDERED: MIRALAX 17 GM POWD.PACK PO ONE (11:00)
[2022-10-21] MEDS: DOCUSATE SODIUM 100 MG CAPSULE PO SCH ×2 (12:33→21:10)
[2022-10-21] MEDS ORDERED: ALBUTEROL SULFATE 2.5 MG/3 ML NEBU NEB PRN ×2 (20:45→21:00)
[2022-10-21] MEDS ORDERED: IPRATROPIUM BROMIDE 0.5 MG/2.5 ML NEBU NEB PRN ×2 (20:45→21:15)
[2022-10-21] MEDS ORDERED: PRAMIPEXOLE 0.25 MG TABLET PO SCH (21:00)
[2022-10-21] MEDS: PRAMIPEXOLE 1 MG TABLET PO SCH (21:10)
[2022-10-21] MEDS: SENNOSIDES 1 TABLET PO SCH (21:10)
[2022-10-22] VITALS (10 sets, daily range): BP systolic 115–129; BP diastolic 52–69; TEMP 97.6–98.1; O2SAT 94–99
[2022-10-22] MEDS: PANTOPRAZOLE SODIUM 40 MG TABLET.DR PO SCH (06:14)
[2022-10-22 06:55] LABS: BASOPHILS % (AUTO) 0.2 % (0.0-2.0); EOSINOPHILS # (AUTO) 0.1 K/uL (0.0-0.7); EOSINOPHILS % (AUTO) 0.5 % (0.0-7.0); HEMATOCRIT 35.1 % (31.2-41.9); HEMOGLOBIN 11.7 g/dL (10.9-14.3); LYMPHOCYTES # (AUTO) 2.1 K/uL (0.8-4.8); LYMPHOCYTES % (AUTO) 14.4 % (20.5-51.5); MEAN CORPUSCULAR HEMOGLOBIN 30.9 uug (24.7-32.8); MEAN CORPUSCULAR HGB CONC 33 g/dL (32.3-35.6); MONOCYTES # (AUTO) 1.1 K/uL (0.1-1.30); MONOCYTES % (AUTO) 7.7 % (0.0-11.0); NEUTROPHILS # (AUTO) 11.3 K/uL (1.8-8.9); NEUTROPHILS % (AUTO) 77.2 % (38.5-71.5); PLATELET COUNT (AUTO) 198 K/uL (179-408); RED BLOOD CELL COUNT(AUTO) 3.78 MIL/uL (3.63-4.92); RED CELL DISTRIBUTION WIDTH 14.9 % (12.3-17.7); WHITE BLOOD COUNT (AUTO) 14.6 K/uL (3.8-11.8)
[2022-10-22 07:45] LABS: CALCIUM 9.2 mg/dL (8.5-10.1); CARBON DIOXIDE 28 mmol/L (21-32); CHLORIDE 104 mmol/L (98-107); CREATININE 1.5 mg/dL (0.6-1.3); GLUCOSE 83 mg/dL (74-106); MAGNESIUM 2.4 mg/dL (1.8-2.4); PHOSPHOROUS 4.8 mg/dL (2.5-4.9); POTASSIUM 4.6 mmol/L (3.5-5.1); SODIUM SERUM 139 mmol/L (136-145); UREA NITROGEN, BLOOD 46 mg/dL (7-18)
[2022-10-22 08:08] LABS: DIFFERENTIAL COMMENT 1
[2022-10-22] MEDS: ALBUTEROL SULFATE 2.5 MG/3 ML NEBU NEB SCH ×3 (08:17→20:14)
[2022-10-22] MEDS: ACETYLCYSTEINE 20% 800 MG/4 ML VIAL NEB SCH ×2 (08:17→20:14)
[2022-10-22] MEDS: IPRATROPIUM BROMIDE 0.5 MG/2.5 ML NEBU NEB SCH ×3 (08:17→20:14)
[2022-10-22] MEDS: buPROPion XL 150 MG TAB.SR.24H PO SCH (08:50)
[2022-10-22] MEDS: BENZONATATE 100 MG CAPSULE PO SCH ×3 (08:51→17:37)
[2022-10-22] MEDS: DOCUSATE SODIUM 100 MG CAPSULE PO SCH ×2 (08:51→20:51)
[2022-10-22] MEDS: MONTELUKAST SODIUM 10 MG TABLET PO SCH (08:51)
[2022-10-22] MEDS: FOLIC ACID 1 MG TABLET PO SCH (08:51)
[2022-10-22] MEDS: VENLAFAXINE XR 75 MG TAB.ER.24H PO SCH (08:51)
[2022-10-22] MEDS: DILTIAZEM HCL CD 120 MG CAP.SR.24H PO SCH (08:52)
[2022-10-22] MEDS ORDERED: FOLIC ACID 1 MG TABLET PO SCH (09:00)
[2022-10-22] MEDS ORDERED: buPROPion XL 150 MG TAB.SR.24H PO SCH (09:00)
[2022-10-22] MEDS ORDERED: MONTELUKAST SODIUM 10 MG TABLET PO SCH (09:00)
[2022-10-22] MEDS ORDERED: VENLAFAXINE XR 75 MG TAB.ER.24H PO SCH (09:00)
[2022-10-22] MEDS ORDERED: DILTIAZEM HCL CD 120 MG CAP.SR.24H PO SCH (09:00)
[2022-10-22] MEDS ORDERED: predniSONE 20 MG TABLET PO SCH (09:00)
[2022-10-22] MEDS ORDERED: PANTOPRAZOLE SODIUM 40 MG TABLET.DR PO SCH (09:00)
[2022-10-22] MEDS: GUAIFENESIN/DEXTROMETHORPHAN 5 ML UDC PO PRN (15:29)
[2022-10-22] MEDS: PRAMIPEXOLE 1 MG TABLET PO SCH (20:51)
[2022-10-22] MEDS: SENNOSIDES 1 TABLET PO SCH (20:51)
[2022-10-23] VITALS (9 sets, daily range): BP systolic 102–139; BP diastolic 47–71; TEMP 98–98.7; O2SAT 89–99
[2022-10-23] MEDS: PANTOPRAZOLE SODIUM 40 MG TABLET.DR PO SCH (06:20)
[2022-10-23] MEDS: ACETYLCYSTEINE 20% 800 MG/4 ML VIAL NEB SCH ×2 (07:45→19:17)
[2022-10-23] MEDS: IPRATROPIUM BROMIDE 0.5 MG/2.5 ML NEBU NEB SCH ×3 (07:45→19:17)
[2022-10-23] MEDS: ALBUTEROL SULFATE 2.5 MG/3 ML NEBU NEB SCH ×3 (07:45→19:17)
[2022-10-23] MEDS: BENZONATATE 100 MG CAPSULE PO SCH ×3 (09:55→17:25)
[2022-10-23] MEDS: buPROPion XL 150 MG TAB.SR.24H PO SCH (09:55)
[2022-10-23] MEDS: FOLIC ACID 1 MG TABLET PO SCH (09:55)
[2022-10-23] MEDS: DOCUSATE SODIUM 100 MG CAPSULE PO SCH ×2 (09:56→21:05)
[2022-10-23] MEDS: MONTELUKAST SODIUM 10 MG TABLET PO SCH (09:56)
[2022-10-23] MEDS: DILTIAZEM HCL CD 120 MG CAP.SR.24H PO SCH (09:56)
[2022-10-23] MEDS: VENLAFAXINE XR 75 MG TAB.ER.24H PO SCH (09:56)
[2022-10-23] MEDS ORDERED: NYSTATIN SUSPENSION 5 ML LIQUID UDC PO SCH (18:00)
[2022-10-23] MEDS: PRAMIPEXOLE 1 MG TABLET PO SCH (21:05)
[2022-10-23] MEDS: SENNOSIDES 1 TABLET PO SCH (21:05)
[2022-10-24] VITALS (10 sets, daily range): BP systolic 111–121; BP diastolic 51–68; TEMP 97.6–98.8; O2SAT 93–100
[2022-10-24] MEDS: PANTOPRAZOLE SODIUM 40 MG TABLET.DR PO SCH (06:48)
[2022-10-24] MEDS: ALBUTEROL SULFATE 2.5 MG/3 ML NEBU NEB SCH ×3 (08:01→20:10)
[2022-10-24] MEDS: IPRATROPIUM BROMIDE 0.5 MG/2.5 ML NEBU NEB SCH ×3 (08:01→20:10)
[2022-10-24] MEDS: ACETYLCYSTEINE 20% 800 MG/4 ML VIAL NEB SCH ×2 (08:01→20:11)
[2022-10-24] MEDS ORDERED: NYSTATIN SUSPENSION 5 ML LIQUID UDC PO ONE (09:00)
[2022-10-24] MEDS: buPROPion XL 150 MG TAB.SR.24H PO SCH (09:50)
[2022-10-24] MEDS: MONTELUKAST SODIUM 10 MG TABLET PO SCH (09:50)
[2022-10-24] MEDS: DOCUSATE SODIUM 100 MG CAPSULE PO SCH ×2 (09:50→21:45)
[2022-10-24] MEDS: DILTIAZEM HCL CD 120 MG CAP.SR.24H PO SCH (09:50)
[2022-10-24] MEDS: BENZONATATE 100 MG CAPSULE PO SCH ×3 (09:51→17:24)
[2022-10-24] MEDS: VENLAFAXINE XR 75 MG TAB.ER.24H PO SCH (09:51)
[2022-10-24] MEDS: FOLIC ACID 1 MG TABLET PO SCH (09:52)
[2022-10-24] MEDS: NYSTATIN SUSPENSION 5 ML LIQUID UDC PO SCH ×2 (13:47→17:24)
[2022-10-24] MEDS: PRAMIPEXOLE 1 MG TABLET PO SCH (21:46)
[2022-10-24] MEDS: SENNOSIDES 1 TABLET PO SCH (21:46)
[2022-10-25] VITALS (11 sets, daily range): BP systolic 103–134; BP diastolic 45–69; TEMP 97.5–98.7; O2SAT 88–99
[2022-10-25] MEDS: NYSTATIN SUSPENSION 5 ML LIQUID UDC PO SCH ×4 (00:18→17:22)
[2022-10-25] MEDS: PANTOPRAZOLE SODIUM 40 MG TABLET.DR PO SCH (06:13)
[2022-10-25] MEDS: ACETYLCYSTEINE 20% 800 MG/4 ML VIAL NEB SCH ×2 (07:41→19:54)
[2022-10-25] MEDS: IPRATROPIUM BROMIDE 0.5 MG/2.5 ML NEBU NEB SCH ×3 (07:41→19:54)
[2022-10-25] MEDS: ALBUTEROL SULFATE 2.5 MG/3 ML NEBU NEB SCH ×3 (07:42→19:54)
[2022-10-25] MEDS: buPROPion XL 150 MG TAB.SR.24H PO SCH (08:31)
[2022-10-25] MEDS: FOLIC ACID 1 MG TABLET PO SCH (08:31)
[2022-10-25] MEDS: BENZONATATE 100 MG CAPSULE PO SCH ×3 (08:31→17:22)
[2022-10-25] MEDS: DILTIAZEM HCL CD 120 MG CAP.SR.24H PO SCH (08:31)
[2022-10-25] MEDS: VENLAFAXINE XR 75 MG TAB.ER.24H PO SCH (08:31)
[2022-10-25] MEDS: MONTELUKAST SODIUM 10 MG TABLET PO SCH (08:32)
[2022-10-25] MEDS: DOCUSATE SODIUM 100 MG CAPSULE PO SCH ×2 (08:32→21:09)
[2022-10-25] MEDS: BUDESONIDE 0.5 MG/2 ML NEBU NEB SCH ×2 (13:54→19:54)
[2022-10-25] MEDS: SENNOSIDES 1 TABLET PO SCH (21:09)
[2022-10-25] MEDS: PRAMIPEXOLE 1 MG TABLET PO SCH (21:09)
[2022-10-26] VITALS (13 sets, daily range): BP systolic 104–130; BP diastolic 48–67; TEMP 97.8–99.3; O2SAT 93–100
[2022-10-26] MEDS: NYSTATIN SUSPENSION 5 ML LIQUID UDC PO SCH ×4 (06:13→17:06)
[2022-10-26] MEDS: PANTOPRAZOLE SODIUM 40 MG TABLET.DR PO SCH (06:14)
[2022-10-26 06:21] LABS: BASOPHILS # (AUTO) 0.1 K/UL (0.0-0.2); BASOPHILS % (AUTO) 0.5 % (0.0-2.0); EOSINOPHILS # (AUTO) 0.2 K/uL (0.0-0.7); EOSINOPHILS % (AUTO) 2.2 % (0.0-7.0); HEMATOCRIT 30.7 % (31.2-41.9); HEMOGLOBIN 10.4 g/dL (10.9-14.3); LYMPHOCYTES # (AUTO) 1.3 K/uL (0.8-4.8); LYMPHOCYTES % (AUTO) 11.9 % (20.5-51.5); MEAN CORPUSCULAR HEMOGLOBIN 31.3 uug (24.7-32.8); MEAN CORPUSCULAR HGB CONC 34 g/dL (32.3-35.6); MEAN CORPUSCULAR VOLUME 92.7 fL (75.5-95.3); MONOCYTES # (AUTO) 0.7 K/uL (0.1-1.30); MONOCYTES % (AUTO) 6.7 % (0.0-11.0); NEUTROPHILS # (AUTO) 8.3 K/uL (1.8-8.9); NEUTROPHILS % (AUTO) 78.7 % (38.5-71.5); PLATELET COUNT (AUTO) 191 K/uL (179-408); RED BLOOD CELL COUNT(AUTO) 3.31 MIL/uL (3.63-4.92); RED CELL DISTRIBUTION WIDTH 14.8 % (12.3-17.7); WHITE BLOOD COUNT (AUTO) 10.5 K/uL (3.8-11.8)
[2022-10-26 06:50] LABS: CALCIUM 8.8 mg/dL (8.5-10.1); CARBON DIOXIDE 29 mmol/L (21-32); CHLORIDE 104 mmol/L (98-107); CREATININE 1.4 mg/dL (0.6-1.3); GLUCOSE 97 mg/dL (74-106); MAGNESIUM 2.1 mg/dL (1.8-2.4); PHOSPHOROUS 4.2 mg/dL (2.5-4.9); POTASSIUM 4.4 mmol/L (3.5-5.1); SODIUM SERUM 139 mmol/L (136-145); UREA NITROGEN, BLOOD 20 mg/dL (7-18)
[2022-10-26 06:55] LABS: DIFFERENTIAL COMMENT 1
[2022-10-26] MEDS: BUDESONIDE 0.5 MG/2 ML NEBU NEB SCH ×2 (07:53→20:36)
[2022-10-26] MEDS: IPRATROPIUM BROMIDE 0.5 MG/2.5 ML NEBU NEB SCH ×3 (08:08→20:35)
[2022-10-26] MEDS: ACETYLCYSTEINE 20% 800 MG/4 ML VIAL NEB SCH ×2 (08:08→20:35)
[2022-10-26] MEDS: ALBUTEROL SULFATE 2.5 MG/3 ML NEBU NEB SCH ×3 (08:08→20:36)
[2022-10-26] MEDS: buPROPion XL 150 MG TAB.SR.24H PO SCH (08:35)
[2022-10-26] MEDS: BENZONATATE 100 MG CAPSULE PO SCH ×3 (08:35→17:02)
[2022-10-26] MEDS: FOLIC ACID 1 MG TABLET PO SCH (08:35)
[2022-10-26] MEDS: VENLAFAXINE XR 75 MG TAB.ER.24H PO SCH (08:35)
[2022-10-26] MEDS: MONTELUKAST SODIUM 10 MG TABLET PO SCH (08:35)
[2022-10-26] MEDS: DOCUSATE SODIUM 100 MG CAPSULE PO SCH ×2 (08:35→20:48)
[2022-10-26] MEDS: DILTIAZEM HCL CD 120 MG CAP.SR.24H PO SCH (08:38)
[2022-10-26] MEDS: SENNOSIDES 1 TABLET PO SCH (20:48)
[2022-10-26] MEDS: PRAMIPEXOLE 1 MG TABLET PO SCH (20:48)
[2022-10-26] MEDS: GUAIFENESIN/DEXTROMETHORPHAN 5 ML UDC PO PRN (20:51)
[2022-10-27] VITALS (8 sets, daily range): BP systolic 116–139; BP diastolic 53–68; TEMP 98.1–98.7; O2SAT 93–100
[2022-10-27] MEDS: NYSTATIN SUSPENSION 5 ML LIQUID UDC PO SCH ×3 (00:06→12:05)
[2022-10-27] MEDS: PANTOPRAZOLE SODIUM 40 MG TABLET.DR PO SCH (06:49)
[2022-10-27] MEDS: ALBUTEROL SULFATE 2.5 MG/3 ML NEBU NEB SCH ×2 (08:07→13:31)
[2022-10-27] MEDS: IPRATROPIUM BROMIDE 0.5 MG/2.5 ML NEBU NEB SCH ×2 (08:07→13:31)
[2022-10-27] MEDS: ACETYLCYSTEINE 20% 800 MG/4 ML VIAL NEB SCH (08:07)
[2022-10-27] MEDS: BUDESONIDE 0.5 MG/2 ML NEBU NEB SCH (08:07)
[2022-10-27] MEDS: VENLAFAXINE XR 75 MG TAB.ER.24H PO SCH (09:06)
[2022-10-27] MEDS: DILTIAZEM HCL CD 120 MG CAP.SR.24H PO SCH (09:06)
[2022-10-27] MEDS: buPROPion XL 150 MG TAB.SR.24H PO SCH (09:06)
[2022-10-27] MEDS: BENZONATATE 100 MG CAPSULE PO SCH ×2 (09:06→12:05)
[2022-10-27] MEDS: MONTELUKAST SODIUM 10 MG TABLET PO SCH (09:06)
[2022-10-27] MEDS: FOLIC ACID 1 MG TABLET PO SCH (09:07)
[2022-10-27] MEDS: DOCUSATE SODIUM 100 MG CAPSULE PO SCH (09:07)
[2022-10-27] MEDS ORDERED: predniSONE 20 MG TABLET PO ONE (10:30)
== END 2022-10-27 16:15 | disposition home health service (06) | DRG 202 ==
LOC: MEDSURG3 15:51
PROVIDERS: ADMIT Physical Medicine & Rehabilitation Pain Medicine; ATTEND Physical Medicine & Rehabilitation Pain Medicine
DX: J20.9 Acute bronchitis, unspecified (principal); I50.33 Acute on chronic diastolic (congestive) heart failure; J96.20 Acute and chronic respiratory failure, unspecified whether with hypoxia or hypercapnia; N17.0 Acute kidney failure with tubular necrosis; J15.9 Unspecified bacterial pneumonia; J44.1 Chronic obstructive pulmonary disease with (acute) exacerbation; I13.0 Hypertensive heart and chronic kidney disease with heart failure and stage 1 through stage 4 chronic kidney disease, or unspecified chronic kidney disease; I47.1 Supraventricular tachycardia; J44.0 Chronic obstructive pulmonary disease with (acute) lower respiratory infection; N17.9 Acute kidney failure, unspecified; J98.11 Atelectasis; R53.1 Weakness; D64.9 Anemia, unspecified; D69.6 Thrombocytopenia, unspecified; N18.9 Chronic kidney disease, unspecified; E78.5 Hyperlipidemia, unspecified; F17.210 Nicotine dependence, cigarettes, uncomplicated; Z99.81 Dependence on supplemental oxygen; F32.A Depression, unspecified; F41.9 Anxiety disorder, unspecified; I25.10 Atherosclerotic heart disease of native coronary artery without angina pectoris; Z88.0 Allergy status to penicillin; Z90.2 Acquired absence of lung [part of]; Z90.49 Acquired absence of other specified parts of digestive tract
CPT/HCPCS: 36415; 36600; 71045; 83735; 84100; 85025; 94640; 94664; 94760; 97535-GO-CO; A6213; J3590; J7512

== ENCOUNTER 2023-09-03 03:46 | Emergency (ER) | payer MEDICARE, OTHER ==
[~2023-09-03] VITALS: Ht 165.1 cm; Wt 66.7 kg
[~2023-09-03 03:46] MED LIST changes: -ACET1TAB23 PO; -AMLO-212 PO; -FAMO20TA8 PO; -GUAI-791 PO; -HC A30CR11 RC; -NEBI10TA2 PO; -VENL37.55 PO; +VENL75CA62 PO
[2023-09-03] MEDS ORDERED: TDAP DIPH,PERTUSS,TET VAC/PF 0.5 ML DISP.SYRIN IM ONE (04:09)
[2023-09-03 04:40] LABS: BASOPHILS % (AUTO) 0.3 % (0.0-2.0); EOSINOPHILS # (AUTO) 0.2 K/uL (0.0-0.7); EOSINOPHILS % (AUTO) 2.9 % (0.0-7.0); HEMATOCRIT 35.3 % (31.2-41.9); HEMOGLOBIN 11.6 g/dL (10.9-14.3); LYMPHOCYTES # (AUTO) 1.5 K/uL (0.8-4.8); LYMPHOCYTES % (AUTO) 20.9 % (20.5-51.5); MEAN CORPUSCULAR HEMOGLOBIN 29.9 uug (24.7-32.8); MEAN CORPUSCULAR HGB CONC 33 g/dL (32.3-35.6); MONOCYTES # (AUTO) 0.5 K/uL (0.1-1.30); MONOCYTES % (AUTO) 6.7 % (0.0-11.0); NEUTROPHILS % (AUTO) 69.2 % (38.5-71.5); PLATELET COUNT (AUTO) 152 K/uL (179-408); RED BLOOD CELL COUNT(AUTO) 3.88 MIL/uL (3.63-4.92); RED CELL DISTRIBUTION WIDTH 15.9 % (12.3-17.7); WHITE BLOOD COUNT (AUTO) 7.2 K/uL (3.8-11.8)
[2023-09-03] MEDS: TDAP DIPH,PERTUSS,TET VAC/PF 0.5 ML DISP.SYRIN IM ONE (04:42)
[2023-09-03 04:43] LABS: DIFFERENTIAL COMMENT 1
[2023-09-03 04:49] LABS: CALCIUM 8.8 mg/dL (8.5-10.1); CARBON DIOXIDE 27 mmol/L (21-32); CHLORIDE 109 mmol/L (98-107); CREATININE 1.4 mg/dL (0.6-1.3); GLUCOSE 91 mg/dL (74-106); POTASSIUM 3.8 mmol/L (3.5-5.1); SODIUM SERUM 144 mmol/L (136-145); UREA NITROGEN, BLOOD 36 mg/dL (7-18)
[2023-09-03 04:52] LABS: ETHANOL < 3 MG/DL (0-10)
[2023-09-03] MEDS ORDERED: FENTANYL CITRATE 100 MCG/2 ML AMPUL ONE (04:53)
[2023-09-03] MEDS ORDERED: ONDANSETRON 4 MG/2 ML VIAL ONE (04:53)
[2023-09-03 04:55] LABS: ALANINE AMINOTRANSFERASE 13 U/L (14-59); ALBUMIN 3.6 g/dL (3.4-5.0); ALKALINE PHOSPHATASE 79 U/L (50-136); ASPARTATE AMINOTRANSFERASE 5 U/L (15-37); BILIRUBIN,TOTAL 0.5 mg/dL (0.2-1.0); MAGNESIUM 2.4 mg/dL (1.8-2.4)
[2023-09-03] MEDS: ONDANSETRON 4 MG/2 ML VIAL IV ONE (04:58)
[2023-09-03] MEDS: FENTANYL CITRATE 100 MCG/2 ML AMPUL IV ONE ×2 (04:59→06:23)
[2023-09-03 08:44] VITALS: BP 138/65; TEMP 98.2; O2SAT 97
== END 2023-09-03 08:45 | disposition home or self-care (01) ==
LOC: ER 03:49
DX: S81.811A Laceration without foreign body, right lower leg, initial encounter (principal); S70.02XA Contusion of left hip, initial encounter; R51.9 Headache, unspecified; F32.A Depression, unspecified; I10 Essential (primary) hypertension; E78.00 Pure hypercholesterolemia, unspecified; F17.200 Nicotine dependence, unspecified, uncomplicated; Z88.0 Allergy status to penicillin; W18.39XA Other fall on same level, initial encounter; Y93.89 Activity, other specified; Y92.89 Other specified places as the place of occurrence of the external cause; Y99.8 Other external cause status
CPT/HCPCS: 12002; 36415; 70450; 71045; 72125; 73502; 73590; 73610; 80053; 80320; 83605; 83735; 85025; 90471; 90715; 93005; 96374; 96375; 99285; J2405; J3010; A4606; A4663; G0480

== ENCOUNTER 2024-01-09 23:18 | Inpatient (IN) | payer MEDICARE, OTHER ==
[~2024-01-09] VITALS: Ht 162.6 cm; Wt 68.0 kg
[2024-01-09] MEDS: IV NORMAL SALINE 1000 ML BAG IV ONE (23:50)
[2024-01-09] MEDS ORDERED: levoFLOXacin 750MG/D5W 150 ML IV ONE (23:53)
[2024-01-09] MEDS: levoFLOXacin 750MG/D5W 150 ML IV ONE (23:55)
[2024-01-10] VITALS (31 sets, daily range): BP systolic 107–130; BP diastolic 50–89; TEMP 97.7–98.8; O2SAT 80–100
[2024-01-10] MEDS ORDERED: IPRATROPIUM BROMIDE 0.5 MG/2.5 ML NEBU ONE
[2024-01-10] MEDS ORDERED: ALBUTEROL SULFATE 2.5 MG/3 ML NEBU ONE
[2024-01-10 00:01] LABS: BASOPHILS % (AUTO) 0.2 % (0.0-2.0); EOSINOPHILS % (AUTO) 0.2 % (0.0-7.0); HEMATOCRIT 31.4 % (31.2-41.9); HEMOGLOBIN 10.2 g/dL (10.9-14.3); LYMPHOCYTES # (AUTO) 0.7 K/uL (0.8-4.8); LYMPHOCYTES % (AUTO) 6.4 % (20.5-51.5); MEAN CORPUSCULAR HGB CONC 33 g/dL (32.3-35.6); MEAN CORPUSCULAR VOLUME 89.3 fL (75.5-95.3); MONOCYTES # (AUTO) 0.6 K/uL (0.1-1.30); MONOCYTES % (AUTO) 5.5 % (0.0-11.0); NEUTROPHILS # (AUTO) 9.9 K/uL (1.8-8.9); NEUTROPHILS % (AUTO) 87.7 % (38.5-71.5); PLATELET COUNT (AUTO) 146 K/uL (179-408); RED BLOOD CELL COUNT(AUTO) 3.51 MIL/uL (3.63-4.92); RED CELL DISTRIBUTION WIDTH 15.8 % (12.3-17.7); WHITE BLOOD COUNT (AUTO) 11.3 K/uL (3.8-11.8)
[2024-01-10] MEDS: IPRATROPIUM BROMIDE 0.5 MG/2.5 ML NEBU NEB ONE (00:12)
[2024-01-10] MEDS: ALBUTEROL SULFATE 2.5 MG/3 ML NEBU NEB ONE (00:13)
[2024-01-10 00:25] LABS: ALANINE AMINOTRANSFERASE 20 U/L (14-59); ALBUMIN 3.1 g/dL (3.4-5.0); ALKALINE PHOSPHATASE 91 U/L (50-136); ASPARTATE AMINOTRANSFERASE 12 U/L (15-37); BILIRUBIN,DIRECT 0.2 mg/dL (0.0-0.2); BILIRUBIN,TOTAL 0.5 mg/dL (0.2-1.0); CARBON DIOXIDE 27 mmol/L (21-32); CHLORIDE 106 mmol/L (98-107); CREATININE 1.3 mg/dL (0.6-1.3); GLUCOSE 116 mg/dL (74-106); NT-PRO BNP 1174 pg/mL (0-125); POTASSIUM 3.2 mmol/L (3.5-5.1); SODIUM SERUM 144 mmol/L (136-145); TOTAL PROTEIN, SERUM 6.7 g/dL (6.4-8.2); UREA NITROGEN, BLOOD 24 mg/dL (7-18)
[2024-01-10] MEDS ORDERED: HYDROCODONE/APAP 5-325MG TABLET ONE (00:27)
[2024-01-10] MEDS: HYDROCODONE/APAP 5-325MG TABLET PO ONE (00:30)
[2024-01-10 01:19] LABS: ABG BASE EXCESS -1.7 mmol/L (-2.0-3.0); ABG HCO3 23.2 mmol/L (21.0-28.0); ABG PCO2 39.6 mmHg (32.0-45.0); ABG PH 7.385 (7.350-7.450); ABG PO2 177.5 mmHg (83.0-108.0); ABG SITE RIGHT RADIAL; AaDO2 99.2 mmHg; COHb 0.7 % (0.5-1.5); MetHb 0.2 % (0.0-1.5); O2Hb 98.1 % (94.0-98.0)
[2024-01-10] MEDS ORDERED: REMEDY ESSENTIAL ZINC PASTE 113 GM TP PRN (02:45)
[2024-01-10] MEDS ORDERED: ONDANSETRON 4 MG/2 ML VIAL IV PRN (02:45)
[2024-01-10] MEDS: ENOXAPARIN SODIUM 40 MG/0.4 ML DISP.SYRIN SQ SCH (04:21)
[2024-01-10 05:31] LABS: BASOPHILS % (AUTO) 0.2 % (0.0-2.0); EOSINOPHILS % (AUTO) 0.1 % (0.0-7.0); HEMATOCRIT 27.4 % (31.2-41.9); HEMOGLOBIN 9.2 g/dL (10.9-14.3); LYMPHOCYTES % (AUTO) 8.9 % (20.5-51.5); MEAN CORPUSCULAR HEMOGLOBIN 30.3 uug (24.7-32.8); MEAN CORPUSCULAR HGB CONC 34 g/dL (32.3-35.6); MONOCYTES # (AUTO) 0.7 K/uL (0.1-1.30); MONOCYTES % (AUTO) 6.4 % (0.0-11.0); NEUTROPHILS # (AUTO) 9.1 K/uL (1.8-8.9); NEUTROPHILS % (AUTO) 84.4 % (38.5-71.5); PLATELET COUNT (AUTO) 129 K/uL (179-408); RED BLOOD CELL COUNT(AUTO) 3.04 MIL/uL (3.63-4.92); RED CELL DISTRIBUTION WIDTH 15.8 % (12.3-17.7); WHITE BLOOD COUNT (AUTO) 10.8 K/uL (3.8-11.8)
[2024-01-10] MEDS: methylPREDNISolone SOD SUCC 40 MG/ML VIAL IV SCH (05:38)
[2024-01-10 05:49] LABS: IRON, SERUM 12 ug/dL (50-175)
[2024-01-10 05:55] LABS: THYROID STIMULATING HORMONE 1.464 mIU/mL (0.358-3.740)
[2024-01-10 06:03] LABS: CALCIUM 7.9 mg/dL (8.5-10.1); CARBON DIOXIDE 28 mmol/L (21-32); CHLORIDE 108 mmol/L (98-107); CREATININE 1.3 mg/dL (0.6-1.3); FERRITIN 48 ng/mL (8-252); GLUCOSE 110 mg/dL (74-106); MAGNESIUM 1.8 mg/dL (1.8-2.4); POTASSIUM 3.4 mmol/L (3.5-5.1); SODIUM SERUM 144 mmol/L (136-145); UREA NITROGEN, BLOOD 24 mg/dL (7-18)
[2024-01-10] MEDS: PANTOPRAZOLE SODIUM 40 MG TABLET.DR PO SCH (06:23)
[2024-01-10] MEDS: IPRATROPIUM BROMIDE 0.5 MG/2.5 ML NEBU NEB SCH (07:28)
[2024-01-10] MEDS: ALBUTEROL SULFATE 2.5 MG/3 ML NEBU NEB SCH (07:28)
[2024-01-10] MEDS: FOLIC ACID 1 MG TABLET PO SCH (08:34)
[2024-01-10] MEDS: MONTELUKAST SODIUM 10 MG TABLET PO SCH (09:34)
[2024-01-10] MEDS: buPROPion XL 150 MG TAB.SR.24H PO SCH (09:34)
[2024-01-10] MEDS: DOXYCYCLINE HYCLATE 100 MG TABLET PO SCH (09:34)
[2024-01-10] MEDS: VENLAFAXINE XR 75 MG TAB.ER.24H PO SCH (09:34)
[2024-01-10] MEDS: POTASSIUM CHLORIDE 20 MEQ TAB.PRT.SR PO ONE (14:34)
[2024-01-10] MEDS: ACETAMINOPHEN 325 MG TABLET PO PRN (14:53)
[2024-01-10] MEDS ORDERED: FLUT1BLS IH (15:41)
[2024-01-10] MEDS ORDERED: TRELEGY INH (15:53)
[2024-01-10] MEDS: PRAMIPEXOLE 0.25 MG TABLET PO SCH (20:25)
[2024-01-10] MEDS ORDERED: levoFLOXacin 750MG/D5W 750 MG in PREMIXED 1 EACH IV SCH (23:00)
[2024-01-11] VITALS (11 sets, daily range): BP systolic 116–141; BP diastolic 49–93; TEMP 97.4–98.4; O2SAT 93–99
[2024-01-11 06:48] LABS: BASOPHILS % (AUTO) 0.2 % (0.0-2.0); EOSINOPHILS # (AUTO) 0.1 K/uL (0.0-0.7); EOSINOPHILS % (AUTO) 1.2 % (0.0-7.0); HEMATOCRIT 26.8 % (31.2-41.9); HEMOGLOBIN 9.2 g/dL (10.9-14.3); LYMPHOCYTES # (AUTO) 1.1 K/uL (0.8-4.8); LYMPHOCYTES % (AUTO) 10.2 % (20.5-51.5); MEAN CORPUSCULAR HEMOGLOBIN 30.7 uug (24.7-32.8); MEAN CORPUSCULAR HGB CONC 34 g/dL (32.3-35.6); MEAN CORPUSCULAR VOLUME 89.6 fL (75.5-95.3); MONOCYTES # (AUTO) 0.6 K/uL (0.1-1.30); MONOCYTES % (AUTO) 5.3 % (0.0-11.0); NEUTROPHILS # (AUTO) 8.8 K/uL (1.8-8.9); NEUTROPHILS % (AUTO) 83.1 % (38.5-71.5); PLATELET COUNT (AUTO) 142 K/uL (179-408); RED BLOOD CELL COUNT(AUTO) 2.98 MIL/uL (3.63-4.92); RED CELL DISTRIBUTION WIDTH 15.9 % (12.3-17.7); WHITE BLOOD COUNT (AUTO) 10.6 K/uL (3.8-11.8)
[2024-01-11 07:03] LABS: ALANINE AMINOTRANSFERASE 26 U/L (14-59); ALBUMIN 2.4 g/dL (3.4-5.0); ALKALINE PHOSPHATASE 71 U/L (50-136); ASPARTATE AMINOTRANSFERASE < 5 U/L (15-37); BILIRUBIN,DIRECT 0.1 mg/dL (0.0-0.2); BILIRUBIN,TOTAL 0.5 mg/dL (0.2-1.0); CALCIUM 8.3 mg/dL (8.5-10.1); CARBON DIOXIDE 31 mmol/L (21-32); CHLORIDE 110 mmol/L (98-107); CHOLESTEROL 135 mg/dL (<200); CREATININE 1.2 mg/dL (0.6-1.3); GLUCOSE 93 mg/dL (74-106); HDL CHOLESTEROL 54 mg/dL (40-60); MAGNESIUM 2.1 mg/dL (1.8-2.4); POTASSIUM 3.8 mmol/L (3.5-5.1); SODIUM SERUM 146 mmol/L (136-145); TOTAL PROTEIN, SERUM 5.7 g/dL (6.4-8.2); TRIGLYCERIDES 55 MG/DL (30-150); UREA NITROGEN, BLOOD 25 mg/dL (7-18)
[2024-01-11 07:20] LABS: DIFFERENTIAL COMMENT 1
[2024-01-11] MEDS: methylPREDNISolone SOD SUCC 40 MG/ML VIAL IV SCH (08:52)
[2024-01-11] MEDS: FLUTICASONE/VILANTEROL 1 EACH BLST.W.DEV INH SCH (08:53)
[2024-01-11] MEDS: D5W IV SCH (23:23)
[2024-01-11] MEDS: LEVOFLOXACIN 250 MG IV SCH (23:23)
[2024-01-12] VITALS (11 sets, daily range): BP systolic 124–147; BP diastolic 57–75; TEMP 97.4–97.8; O2SAT 94–99
[2024-01-12] MEDS: SOD FERRIC GLUC COMPLX/SUCROSE 125 MG in IV NORMAL SALINE 100 ML IV SCH (14:28)
[2024-01-13] VITALS (9 sets, daily range): BP systolic 128–148; BP diastolic 58–66; TEMP 97.3–98.2; O2SAT 94–99
[2024-01-13 07:11] LABS: BASOPHILS % (AUTO) 0.1 % (0.0-2.0); EOSINOPHILS % (AUTO) 0.4 % (0.0-7.0); HEMATOCRIT 28.1 % (31.2-41.9); HEMOGLOBIN 9.4 g/dL (10.9-14.3); LYMPHOCYTES # (AUTO) 1.2 K/uL (0.8-4.8); LYMPHOCYTES % (AUTO) 13.4 % (20.5-51.5); MEAN CORPUSCULAR HGB CONC 34 g/dL (32.3-35.6); MEAN CORPUSCULAR VOLUME 89.3 fL (75.5-95.3); MONOCYTES # (AUTO) 0.7 K/uL (0.1-1.30); MONOCYTES % (AUTO) 7.3 % (0.0-11.0); NEUTROPHILS # (AUTO) 7.1 K/uL (1.8-8.9); NEUTROPHILS % (AUTO) 78.8 % (38.5-71.5); PLATELET COUNT (AUTO) 183 K/uL (179-408); RED BLOOD CELL COUNT(AUTO) 3.14 MIL/uL (3.63-4.92); RED CELL DISTRIBUTION WIDTH 15.7 % (12.3-17.7)
[2024-01-13 07:18] LABS: DIFFERENTIAL COMMENT 1
[2024-01-13 07:19] LABS: CALCIUM 8.5 mg/dL (8.5-10.1); CARBON DIOXIDE 35 mmol/L (21-32); CHLORIDE 109 mmol/L (98-107); GLUCOSE 92 mg/dL (74-106); POTASSIUM 3.8 mmol/L (3.5-5.1); SODIUM SERUM 147 mmol/L (136-145); UREA NITROGEN, BLOOD 18 mg/dL (7-18)
[2024-01-13] MEDS ORDERED: METH4TAB3 PO (11:20)
[2024-01-13] MEDS ORDERED: ACET325T53 PO (11:20)
[2024-01-13] MEDS ORDERED: FLUT1BLS INH (11:20)
[2024-01-13] MEDS ORDERED: LEVO750T46 PO (11:20)
[2024-01-13] MEDS ORDERED: ACID1TAB4 PO (11:20)
[2024-01-13] MEDS ORDERED: IPRA0.2S6 NEB (11:20)
[2024-01-13] MEDS ORDERED: SOD62.5V IV (11:20)
[2024-01-13] MEDS ORDERED: PANT40TA49 PO (11:20)
[2024-01-13] MEDS ORDERED: PROT30LI PO (11:26)
[2024-01-13] MEDS ORDERED: MULT-1045 PO (11:26)
[2024-01-13] MEDS ORDERED: levoFLOXacin 750 MG TABLET PO SCH (21:00)
== END 2024-01-13 20:30 | DRG 177 ==
LOC: ER 23:23 → CCU 01-10 01:30 → TELE-TD3 01-10 19:19 → TELE3 01-11 10:04 → MEDSURG3 01-12 10:51
PROVIDERS: ADMIT Nurse Practitioner Family; ATTEND Internal Medicine
DX: J15.69 Pneumonia due to other Gram-negative bacteria (principal); I50.33 Acute on chronic diastolic (congestive) heart failure; J96.21 Acute and chronic respiratory failure with hypoxia; N17.0 Acute kidney failure with tubular necrosis; J44.1 Chronic obstructive pulmonary disease with (acute) exacerbation; I13.0 Hypertensive heart and chronic kidney disease with heart failure and stage 1 through stage 4 chronic kidney disease, or unspecified chronic kidney disease; D68.59 Other primary thrombophilia; E44.1 Mild protein-calorie malnutrition; J44.0 Chronic obstructive pulmonary disease with (acute) lower respiratory infection; J43.9 Emphysema, unspecified; Z99.81 Dependence on supplemental oxygen; F17.210 Nicotine dependence, cigarettes, uncomplicated; J20.9 Acute bronchitis, unspecified; N18.9 Chronic kidney disease, unspecified; E87.6 Hypokalemia; R19.5 Other fecal abnormalities; E86.0 Dehydration; M15.9 Polyosteoarthritis, unspecified; F32.A Depression, unspecified; D50.9 Iron deficiency anemia, unspecified; E78.00 Pure hypercholesterolemia, unspecified; R29.810 Facial weakness; Z74.09 Other reduced mobility; Z88.0 Allergy status to penicillin; Z86.0100 Personal history of colon polyps, unspecified; Z82.5 Family history of asthma and other chronic lower respiratory diseases; Z90.49 Acquired absence of other specified parts of digestive tract; Z79.899 Other long term (current) drug therapy; Z87.09 Personal history of other diseases of the respiratory system; Z98.890 Other specified postprocedural states
CPT/HCPCS: 36415; 36600; 71045; 82378; 82803; 83550; 83605; 83735; 84100; 84443; 84484; 85025; 87040; 94640; 94664; 94760; A4663; G0378; J1650; J1956; J2916; J2919; J3590; J7040

== ENCOUNTER 2024-01-13 21:31 | Inpatient (IN) | payer MEDICARE, OTHER ==
[~2024-01-13] VITALS: Ht 157.5 cm; Wt 65.0 kg
[~2024-01-13 21:31] MED LIST changes: +ACET325T53 PO; +ACID1TAB4 PO; -BENZ200C53 PO; -DILT120C87 PO; +FLUT1BLS INH; -LEVO250P3 IV; +LEVO750T46 PO; +METH4TAB3 PO; +MULT-1045 PO; +PROT30LI PO; +SOD62.5V IV; +TRELEGY INH; -methylPREDNISolone SOD SUCC IV
[2024-01-13 21:36] VITALS: BP 151/76; TEMP 98.3; O2SAT 93
[2024-01-13] MEDS ORDERED: REMEDY ESSENTIAL ZINC PASTE 113 GM TOP PRN (21:45)
[2024-01-13] MEDS ORDERED: ACETAMINOPHEN 325 MG TABLET-SA PATIENTS-PAIN ONLY PO PRN (23:30)
[2024-01-13] MEDS ORDERED: methylPREDNISolone 1 PACK TAB.DS.PK [4MG TAB] PO SCH (23:45)
[2024-01-14] MEDS: ACETAMINOPHEN 325 MG TABLET PO PRN (00:17)
[2024-01-14] MEDS: PRAMIPEXOLE 0.25 MG TABLET PO SCH (00:17)
[2024-01-14] MEDS: PANTOPRAZOLE SODIUM 40 MG TABLET.DR PO SCH (06:06)
[2024-01-14 06:28] VITALS: BP 136/64; TEMP 98.1; O2SAT 94
[2024-01-14] MEDS: FLUTICASONE/VILANTEROL 1 EACH BLST.W.DEV INH SCH (09:30)
[2024-01-14] MEDS: MULTIVITAMINS,THERAPEUTIC TABLET PO SCH (09:32)
[2024-01-14] MEDS: buPROPion XL 150 MG TAB.SR.24H PO SCH (09:32)
[2024-01-14] MEDS: FOLIC ACID 1 MG TABLET PO SCH (09:32)
[2024-01-14] MEDS: PROTEIN SUPPLEMENT (PROSTAT) 30 ML LIQUID PO SCH (09:32)
[2024-01-14] MEDS: VENLAFAXINE XR 75 MG TAB.ER.24H PO SCH (09:32)
[2024-01-14] MEDS: MONTELUKAST SODIUM 10 MG TABLET PO SCH (09:33)
[2024-01-14] MEDS: ACIDOPHILUS/BULGARICUS CHEW TAB PO SCH (09:33)
[2024-01-14] MEDS: methylPREDNISolone 4 MG TABLET (DAY#1) PO ONE (11:33)
[2024-01-14 12:39] VITALS: O2SAT 94
[2024-01-14] MEDS: IPRATROPIUM BROMIDE 0.5 MG/2.5 ML NEBU NEB PRN (12:39)
[2024-01-14] MEDS: ALBUTEROL SULFATE 2.5 MG/3 ML NEBU NEB PRN (12:39)
[2024-01-14] MEDS: methylPREDNISolone 4 MG TABLET (DAY#1 PC LUNCH) PO ONE (12:41)
[2024-01-14 12:54] VITALS: O2SAT 99
[2024-01-14] MEDS: SOD FERRIC GLUC COMPLX/SUCROSE 125 MG in IV NORMAL SALINE 100 ML IV SCH (14:35)
[2024-01-14] MEDS: REMEDY ESSENTIAL ZINC PASTE 113 GM TOP PRN (15:31)
[2024-01-14 16:16] VITALS: BP 145/60; TEMP 98.2; O2SAT 95
[2024-01-14] MEDS: methylPREDNISolone 4 MG TABLET (DAY#1, PC DINNER) PO ONE (16:45)
[2024-01-14 20:02] VITALS: BP 139/67; TEMP 98.1; O2SAT 93
[2024-01-14] MEDS: GUAIFENESIN LA 600 MG TABLET.SA PO SCH (20:29)
[2024-01-14] MEDS: methylPREDNISolone 4 MG TABLET (DAY#1, HS) PO ONE (20:30)
[2024-01-15] VITALS (7 sets, daily range): BP systolic 133–158; BP diastolic 62–69; TEMP 98.1–98.8; O2SAT 96–99
[2024-01-15] MEDS: methylPREDNISolone 4 MG TABLET (DAY#2, ACB) PO ONE (07:16)
[2024-01-15] MEDS: methylPREDNISolone 4 MG TABLET (DAY#2, PC LUNCH) PO ONE (12:44)
[2024-01-15] MEDS: methylPREDNISolone 4 MG TABLET (DAY#2, PC DINNER) PO ONE (16:31)
[2024-01-15] MEDS: levoFLOXacin 750 MG TABLET PO SCH (20:28)
[2024-01-15] MEDS: methylPREDNISolone 4 MG TABLET (DAY#2, HS) PO ONE (20:29)
[2024-01-16 05:11] VITALS: O2SAT 99
[2024-01-16 06:00] VITALS: BP 147/75; TEMP 97.9; O2SAT 96
[2024-01-16] MEDS: methylPREDNISolone 4 MG TABLET (DAY#3, ACB) PO ONE (08:32)
[2024-01-16] MEDS: methylPREDNISolone 4 MG TABLET (DAY#3, PC LUNCH) PO ONE (12:52)
[2024-01-16 15:47] VITALS: BP 146/68; TEMP 98; O2SAT 96
[2024-01-16 17:52] VITALS: O2SAT 99
[2024-01-16] MEDS: methylPREDNISolone 4 MG TABLET (DAY#3, PC DINNER) PO ONE (18:07)
[2024-01-16 20:00] VITALS: BP 146/65; TEMP 98; O2SAT 95
[2024-01-16] MEDS: methylPREDNISolone 4 MG TABLET (DAY#3, HS) PO ONE (21:02)
[2024-01-17] VITALS (7 sets, daily range): BP systolic 121–161; BP diastolic 52–70; TEMP 97.7–98; O2SAT 94–98
[2024-01-17 07:39] LABS: BASOPHILS % (AUTO) 0.5 % (0.0-2.0); EOSINOPHILS # (AUTO) 0.1 K/uL (0.0-0.7); HEMATOCRIT 31.5 % (31.2-41.9); HEMOGLOBIN 10.3 g/dL (10.9-14.3); LYMPHOCYTES # (AUTO) 1.6 K/uL (0.8-4.8); MEAN CORPUSCULAR HEMOGLOBIN 28.9 uug (24.7-32.8); MEAN CORPUSCULAR HGB CONC 33 g/dL (32.3-35.6); MEAN CORPUSCULAR VOLUME 88.9 fL (75.5-95.3); MONOCYTES # (AUTO) 0.6 K/uL (0.1-1.30); MONOCYTES % (AUTO) 5.8 % (0.0-11.0); NEUTROPHILS # (AUTO) 7.7 K/uL (1.8-8.9); NEUTROPHILS % (AUTO) 76.7 % (38.5-71.5); PLATELET COUNT (AUTO) 272 K/uL (179-408); RED BLOOD CELL COUNT(AUTO) 3.54 MIL/uL (3.63-4.92); RED CELL DISTRIBUTION WIDTH 15.7 % (12.3-17.7); WHITE BLOOD COUNT (AUTO) 10.1 K/uL (3.8-11.8)
[2024-01-17 07:41] LABS: DIFFERENTIAL COMMENT 1
[2024-01-17] MEDS: methylPREDNISolone 4 MG TABLET (DAY#4, ACB) PO ONE (07:57)
[2024-01-17] MEDS: hydrALAZINE HCL 25 MG TABLET PO ONE (07:57)
[2024-01-17 08:25] LABS: ALANINE AMINOTRANSFERASE 21 U/L (14-59); ALBUMIN 2.4 g/dL (3.4-5.0); ALKALINE PHOSPHATASE 71 U/L (50-136); ASPARTATE AMINOTRANSFERASE 12 U/L (15-37); BILIRUBIN,TOTAL 0.4 mg/dL (0.2-1.0); CALCIUM 9.1 mg/dL (8.5-10.1); CARBON DIOXIDE 34 mmol/L (21-32); CHLORIDE 103 mmol/L (98-107); CREATININE 1.1 mg/dL (0.6-1.3); GLUCOSE 94 mg/dL (74-106); MAGNESIUM 2.3 mg/dL (1.8-2.4); PHOSPHOROUS 4.1 mg/dL (2.5-4.9); POTASSIUM 4.5 mmol/L (3.5-5.1); SODIUM SERUM 142 mmol/L (136-145); TOTAL PROTEIN, SERUM 6.2 g/dL (6.4-8.2); UREA NITROGEN, BLOOD 22 mg/dL (7-18)
[2024-01-17] MEDS ORDERED: AMLODIPINE 5 MG TABLET PO SCH (09:15)
[2024-01-17] MEDS: methylPREDNISolone 4 MG TABLET (DAY#4, PC LUNCH) PO ONE (13:21)
[2024-01-17] MEDS: AMLODIPINE 5 MG TABLET PO SCH (18:34)
[2024-01-17] MEDS: MIRTAZAPINE 15 MG TABLET PO SCH (22:16)
[2024-01-17] MEDS: methylPREDNISolone 4 MG TABLET (DAY#4, HS) PO ONE (22:55)
[2024-01-18 00:39] VITALS: O2SAT 97
[2024-01-18 06:00] VITALS: BP 151/64; TEMP 98.1; O2SAT 97
[2024-01-18] MEDS ORDERED: methylPREDNISolone 4 MG TABLET ONE ×2 (06:30→22:05)
[2024-01-18] MEDS: methylPREDNISolone 4 MG TABLET (DAY#5, ACB) PO ONE (06:36)
[2024-01-18] MEDS: PROTEIN SUPPLEMENT (PROSTAT) 30 ML LIQUID PO SCH (09:27)
[2024-01-18 16:17] VITALS: BP 119/59; TEMP 98.1; O2SAT 95
[2024-01-18] MEDS: methylPREDNISolone 4 MG TABLET (DAY#5, HS) PO ONE (22:07)
[2024-01-18 22:19] VITALS: O2SAT 89
[2024-01-18 22:39] VITALS: O2SAT 90; O2SAT 97
[2024-01-18 23:20] VITALS: BP 123/51; TEMP 97.5; O2SAT 95
[2024-01-19] MEDS: methylPREDNISolone 4 MG TABLET (DAY#6, ACB) PO ONE (06:26)
[2024-01-19 07:17] VITALS: BP 129/51; TEMP 98.2; O2SAT 88
[2024-01-19 16:18] VITALS: BP 120/66; TEMP 98.3; O2SAT 95
[2024-01-19 21:11] VITALS: BP 115/49; TEMP 98.4; O2SAT 97
[2024-01-19 21:15] VITALS: O2SAT 93
[2024-01-19 21:30] VITALS: O2SAT 93; O2SAT 98
[2024-01-20 05:20] VITALS: O2SAT 97
[2024-01-20 06:58] VITALS: BP 119/41; TEMP 97.3; O2SAT 86
[2024-01-20 15:48] VITALS: BP 135/66; TEMP 98; O2SAT 93
[2024-01-20] MEDS: TRIAMCINOLONE ACETONIDE 40 MG/1 ML VIAL IJ ONE (17:11)
[2024-01-20] MEDS: LIDOCAINE HCL 1% 20 ML VIAL IJ PRN (17:11)
[2024-01-20 19:23] VITALS: BP 116/68; TEMP 98.3; O2SAT 94
[2024-01-20 22:15] VITALS: O2SAT 94
[2024-01-20 22:30] VITALS: O2SAT 97
[2024-01-21 06:25] VITALS: BP 122/59; TEMP 97.8; O2SAT 93
[2024-01-21 15:40] VITALS: BP 120/79; TEMP 98.5; O2SAT 93
[2024-01-21 19:35] VITALS: BP 114/57; TEMP 97.9; O2SAT 91
[2024-01-21 22:45] VITALS: O2SAT 94
[2024-01-21 22:55] VITALS: O2SAT 97; O2SAT 98
[2024-01-22 06:38] VITALS: BP 125/52; TEMP 97.5; O2SAT 94
[2024-01-22 12:00] VITALS: O2SAT 96
[2024-01-22 16:00] VITALS: BP 126/59; TEMP 98.7; O2SAT 93
[2024-01-22 20:00] VITALS: BP 128/67; TEMP 98.4; O2SAT 100
[2024-01-23 06:00] VITALS: BP 128/70; TEMP 97.8; O2SAT 98
[2024-01-23 20:00] VITALS: BP 147/63; TEMP 98.1; O2SAT 95
[2024-01-23 21:30] VITALS: O2SAT 95
[2024-01-23 21:40] VITALS: O2SAT 98
[2024-01-24 06:00] VITALS: BP 110/63; TEMP 98; O2SAT 95
[2024-01-24 07:11] LABS: BASOPHILS % (AUTO) 0.4 % (0.0-2.0); EOSINOPHILS # (AUTO) 0.2 K/uL (0.0-0.7); EOSINOPHILS % (AUTO) 1.7 % (0.0-7.0); HEMATOCRIT 31.4 % (31.2-41.9); HEMOGLOBIN 10.4 g/dL (10.9-14.3); LYMPHOCYTES # (AUTO) 1.6 K/uL (0.8-4.8); MEAN CORPUSCULAR HEMOGLOBIN 29.8 uug (24.7-32.8); MEAN CORPUSCULAR HGB CONC 33 g/dL (32.3-35.6); MEAN CORPUSCULAR VOLUME 90.3 fL (75.5-95.3); MONOCYTES # (AUTO) 0.6 K/uL (0.1-1.30); MONOCYTES % (AUTO) 5.9 % (0.0-11.0); PLATELET COUNT (AUTO) 229 K/uL (179-408); RED BLOOD CELL COUNT(AUTO) 3.47 MIL/uL (3.63-4.92); RED CELL DISTRIBUTION WIDTH 16.1 % (12.3-17.7); WHITE BLOOD COUNT (AUTO) 9.3 K/uL (3.8-11.8)
[2024-01-24 07:16] LABS: DIFFERENTIAL COMMENT 1
[2024-01-24 07:49] LABS: CALCIUM 9.2 mg/dL (8.5-10.1); CARBON DIOXIDE 31 mmol/L (21-32); CHLORIDE 107 mmol/L (98-107); CREATININE 1.4 mg/dL (0.6-1.3); GLUCOSE 99 mg/dL (74-106); MAGNESIUM 2.4 mg/dL (1.8-2.4); PHOSPHOROUS 4.6 mg/dL (2.5-4.9); SODIUM SERUM 141 mmol/L (136-145); UREA NITROGEN, BLOOD 41 mg/dL (7-18)
[2024-01-24 16:13] VITALS: BP 122/61; TEMP 98; O2SAT 95
[2024-01-24 19:45] VITALS: BP 130/55; TEMP 97.9; O2SAT 95
[2024-01-25 07:05] VITALS: BP 118/49; TEMP 97.6; O2SAT 94
[2024-01-25 15:59] VITALS: BP 105/64; TEMP 98.2; O2SAT 96
[2024-01-25 17:30] VITALS: BP 117/55; O2SAT 93
[2024-01-25 20:38] VITALS: BP 119/64; TEMP 99.1; O2SAT 95
[2024-01-25 22:30] VITALS: O2SAT 95
[2024-01-25 22:45] VITALS: O2SAT 98; O2SAT 99
[2024-01-26] VITALS (9 sets, daily range): BP systolic 111–128; BP diastolic 55–67; TEMP 97.8–99.2; O2SAT 94–99
[2024-01-26 07:11] LABS: BASOPHILS % (AUTO) 0.2 % (0.0-2.0); EOSINOPHILS # (AUTO) 0.1 K/uL (0.0-0.7); EOSINOPHILS % (AUTO) 1.5 % (0.0-7.0); HEMATOCRIT 30.4 % (31.2-41.9); HEMOGLOBIN 9.9 g/dL (10.9-14.3); LYMPHOCYTES # (AUTO) 1.5 K/uL (0.8-4.8); MEAN CORPUSCULAR HEMOGLOBIN 29.8 uug (24.7-32.8); MEAN CORPUSCULAR HGB CONC 33 g/dL (32.3-35.6); MEAN CORPUSCULAR VOLUME 90.9 fL (75.5-95.3); MONOCYTES # (AUTO) 0.5 K/uL (0.1-1.30); MONOCYTES % (AUTO) 6.3 % (0.0-11.0); NEUTROPHILS # (AUTO) 6.5 K/uL (1.8-8.9); PLATELET COUNT (AUTO) 223 K/uL (179-408); RED BLOOD CELL COUNT(AUTO) 3.34 MIL/uL (3.63-4.92); RED CELL DISTRIBUTION WIDTH 15.9 % (12.3-17.7); WHITE BLOOD COUNT (AUTO) 8.6 K/uL (3.8-11.8)
[2024-01-26 07:12] LABS: DIFFERENTIAL COMMENT 1
[2024-01-26 07:49] LABS: CALCIUM 8.8 mg/dL (8.5-10.1); CARBON DIOXIDE 29 mmol/L (21-32); CHLORIDE 109 mmol/L (98-107); CREATININE 1.3 mg/dL (0.6-1.3); GLUCOSE 93 mg/dL (74-106); MAGNESIUM 2.3 mg/dL (1.8-2.4); PHOSPHOROUS 4.3 mg/dL (2.5-4.9); SODIUM SERUM 143 mmol/L (136-145); UREA NITROGEN, BLOOD 40 mg/dL (7-18)
[2024-01-26 07:59] LABS: C-REACTIVE PROTEIN 3.03 mg/dL (0.00-0.30)
[2024-01-26] MEDS: ACETYLCYSTEINE 20% 800 MG/4 ML VIAL NEB SCH (09:44)
[2024-01-27 06:23] VITALS: BP 107/74; TEMP 98.3; O2SAT 94
[2024-01-27 08:35] VITALS: O2SAT 97
[2024-01-27 08:45] VITALS: O2SAT 98
[2024-01-27 15:19] VITALS: BP 125/64; TEMP 99.2; O2SAT 96
== END 2024-01-27 17:53 | disposition home health service (06) | DRG 189 ==
PROVIDERS: ADMIT Physical Medicine & Rehabilitation Pain Medicine; ATTEND Physical Medicine & Rehabilitation Pain Medicine
DX: J96.21 Acute and chronic respiratory failure with hypoxia (principal); J18.9 Pneumonia, unspecified organism; N17.0 Acute kidney failure with tubular necrosis; I50.33 Acute on chronic diastolic (congestive) heart failure; J44.0 Chronic obstructive pulmonary disease with (acute) lower respiratory infection; J44.1 Chronic obstructive pulmonary disease with (acute) exacerbation; E44.1 Mild protein-calorie malnutrition; D68.59 Other primary thrombophilia; I13.0 Hypertensive heart and chronic kidney disease with heart failure and stage 1 through stage 4 chronic kidney disease, or unspecified chronic kidney disease; J98.11 Atelectasis; J40 Bronchitis, not specified as acute or chronic; D50.9 Iron deficiency anemia, unspecified; M19.90 Unspecified osteoarthritis, unspecified site; R26.81 Unsteadiness on feet; E78.5 Hyperlipidemia, unspecified; N18.9 Chronic kidney disease, unspecified; F17.210 Nicotine dependence, cigarettes, uncomplicated; G89.29 Other chronic pain; Z88.0 Allergy status to penicillin; Z90.49 Acquired absence of other specified parts of digestive tract; K21.9 Gastro-esophageal reflux disease without esophagitis; R29.810 Facial weakness; R19.5 Other fecal abnormalities; M71.552 Other bursitis, not elsewhere classified, left hip
CPT/HCPCS: 36415; 71045; 83735; 84100; 85025; 86140; 94640; 94664; 94760; 97535-GO-CO; A4663; J2916; J3301; J3490; J3590; J7040; J7509

== ENCOUNTER 2024-05-23 07:37 | Inpatient (IN) | payer MEDICARE, OTHER ==
[~2024-05-23] VITALS: Ht 157.5 cm; Wt 57.6 kg
[~2024-05-23 07:37] MED LIST changes: -TRELEGY INH
[2024-05-23] MEDS ORDERED: ACETAMINOPHEN 500 MG TABLET ONE (08:00)
[2024-05-23] MEDS: ACETAMINOPHEN 500 MG TABLET PO ONE (08:09)
[2024-05-23] MEDS ORDERED: AZITHROMYCIN 500MG/ D5W 250ML IVPB **ER PYXIS ONLY IV ONE (10:51)
[2024-05-23] MEDS: AZITHROMYCIN IV 500 MG in IV DEXTROSE 5% 250 ML IV ONE (10:59)
[2024-05-23] MEDS ORDERED: ALBUTEROL SULFATE 2.5 MG/3 ML NEBU ONE (11:05)
[2024-05-23] MEDS ORDERED: IPRATROPIUM BROMIDE 0.5 MG/2.5 ML NEBU ONE (11:05)
[2024-05-23 11:07] VITALS: O2SAT 99
[2024-05-23] MEDS: ALBUTEROL SULFATE 2.5 MG/3 ML NEBU NEB ONE (11:07)
[2024-05-23] MEDS: IPRATROPIUM BROMIDE 0.5 MG/2.5 ML NEBU NEB ONE (11:07)
[2024-05-23] MEDS ORDERED: CYANOCOBALAMIN 1000 MCG/ML VIAL ONE (11:11)
[2024-05-23] MEDS: CYANOCOBALAMIN 1000 MCG/ML VIAL IM ONE (11:16)
[2024-05-23 11:21] LABS: BASOPHILS % (AUTO) 0.3 % (0.0-2.0); EOSINOPHILS # (AUTO) 0.1 K/uL (0.0-0.7); EOSINOPHILS % (AUTO) 0.8 % (0.0-7.0); HEMATOCRIT 35.6 % (31.2-41.9); HEMOGLOBIN 11.5 g/dL (10.9-14.3); LYMPHOCYTES # (AUTO) 1.4 K/uL (0.8-4.8); LYMPHOCYTES % (AUTO) 17.9 % (20.5-51.5); MEAN CORPUSCULAR HEMOGLOBIN 29.9 uug (24.7-32.8); MEAN CORPUSCULAR HGB CONC 32 g/dL (32.3-35.6); MEAN CORPUSCULAR VOLUME 92.3 fL (75.5-95.3); MONOCYTES # (AUTO) 0.4 K/uL (0.1-1.30); MONOCYTES % (AUTO) 5.4 % (0.0-11.0); NEUTROPHILS % (AUTO) 75.6 % (38.5-71.5); PLATELET COUNT (AUTO) 188 K/uL (179-408); RED BLOOD CELL COUNT(AUTO) 3.85 MIL/uL (3.63-4.92); RED CELL DISTRIBUTION WIDTH 15.6 % (12.3-17.7); WHITE BLOOD COUNT (AUTO) 7.9 K/uL (3.8-11.8)
[2024-05-23 11:22] VITALS: O2SAT 99
[2024-05-23 11:32] LABS: DIFFERENTIAL COMMENT 1
[2024-05-23 11:33] LABS: CALCIUM 9.2 mg/dL (8.5-10.1); CARBON DIOXIDE 30 mmol/L (21-32); CHLORIDE 107 mmol/L (98-107); CREATININE 1.1 mg/dL (0.6-1.3); GLUCOSE 115 mg/dL (74-106); POTASSIUM 3.9 mmol/L (3.5-5.1); SODIUM SERUM 143 mmol/L (136-145); UREA NITROGEN, BLOOD 17 mg/dL (7-18)
[2024-05-23 11:48] LABS: ALANINE AMINOTRANSFERASE 19 U/L (14-59); ALBUMIN 3.3 g/dL (3.4-5.0); ALKALINE PHOSPHATASE 73 U/L (50-136); ASPARTATE AMINOTRANSFERASE 10 U/L (15-37); BILIRUBIN,DIRECT 0.2 mg/dL (0.0-0.2); BILIRUBIN,TOTAL 0.6 mg/dL (0.2-1.0); NT-PRO BNP 514 pg/mL (0-125); TOTAL PROTEIN, SERUM 6.8 g/dL (6.4-8.2)
[2024-05-23] MEDS ORDERED: IPRATROPIUM BROMIDE 0.5 MG/2.5 ML NEBU NEB PRN (12:00)
[2024-05-23] MEDS ORDERED: MAGNESIUM HYDROXIDE 30 ML LIQUID UDC PO PRN (12:00)
[2024-05-23] MEDS ORDERED: ALBUTEROL SULFATE 2.5 MG/ 0.5 ML NEBU NEB PRN (12:00)
[2024-05-23] MEDS ORDERED: ONDANSETRON 4 MG/2 ML VIAL IV PRN (12:00)
[2024-05-23] MEDS ORDERED: FOLI1TAB27 PO (12:26)
[2024-05-23] MEDS ORDERED: ROFL500T PO (12:26)
[2024-05-23] MEDS ORDERED: AMLO-212 PO (12:26)
[2024-05-23] MEDS ORDERED: BUPR-53 PO (12:26)
[2024-05-23] MEDS ORDERED: GABA-532 PO (12:26)
[2024-05-23] MEDS ORDERED: TOLT4CAP PO (12:26)
[2024-05-23] MEDS ORDERED: NEBI10TA2 PO (12:26)
[2024-05-23] MEDS ORDERED: GUAI-1105 PO (12:26)
[2024-05-23 14:16] VITALS: BP 145/74; TEMP 98.2; O2SAT 95
[2024-05-23] MEDS: methylPREDNISolone SOD SUCC 40 MG/ML VIAL IV SCH (15:23)
[2024-05-23] MEDS ORDERED: DOXY100T2 PO (15:28)
[2024-05-23] MEDS ORDERED: CYAN10006 IM (15:39)
[2024-05-23] MEDS ORDERED: DICL100G31 TP (15:40)
[2024-05-23] MEDS ORDERED: HYDR12.55 PO (15:43)
[2024-05-23] MEDS ORDERED: AZEL137S7 BNOSTRILS (15:43)
[2024-05-23] MEDS ORDERED: BENZ200C53 PO (15:46)
[2024-05-23] MEDS ORDERED: CYCL5.5D EACHEYE (15:48)
[2024-05-23] MEDS ORDERED: GUAI400T93 PO (15:52)
[2024-05-23 15:55] VITALS: BP 148/75; TEMP 98.1; O2SAT 91
[2024-05-23] MEDS ORDERED: ALBU8.5H8 PO (15:56)
[2024-05-23] MEDS ORDERED: ALBU2.5V13 NEB (15:58)
[2024-05-23] MEDS ORDERED: FLUT1BLS6 PO (16:00)
[2024-05-23] MEDS ORDERED: IBUP200C5 PO (16:02)
[2024-05-23] MEDS: HYDROCODONE/APAP 5-325MG TABLET PO PRN (16:54)
[2024-05-23 19:47] VITALS: BP 132/70; TEMP 98.4; O2SAT 92
[2024-05-23] MEDS: GABAPENTIN 100 MG CAPSULE PO SCH (21:49)
[2024-05-23] MEDS: PRAMIPEXOLE 0.25 MG TABLET PO SCH (21:49)
[2024-05-23] MEDS: levoFLOXacin 500 MG/D5W 500 MG in PREMIXED 1 EACH IV ONE (21:50)
[2024-05-23 23:46] VITALS: BP 126/63; TEMP 98.4; O2SAT 93
[2024-05-24] VITALS (10 sets, daily range): BP systolic 122–138; BP diastolic 61–68; TEMP 97.8–98.4; O2SAT 92–100
[2024-05-24] MEDS: PANTOPRAZOLE SODIUM 40 MG TABLET.DR PO SCH (06:09)
[2024-05-24 06:57] LABS: BASOPHILS % (AUTO) 0.1 % (0.0-2.0); HEMATOCRIT 33.2 % (31.2-41.9); HEMOGLOBIN 11.2 g/dL (10.9-14.3); LYMPHOCYTES # (AUTO) 0.7 K/uL (0.8-4.8); MEAN CORPUSCULAR HEMOGLOBIN 30.8 uug (24.7-32.8); MEAN CORPUSCULAR HGB CONC 34 g/dL (32.3-35.6); MEAN CORPUSCULAR VOLUME 91.6 fL (75.5-95.3); MONOCYTES # (AUTO) 0.1 K/uL (0.1-1.30); MONOCYTES % (AUTO) 1.8 % (0.0-11.0); NEUTROPHILS # (AUTO) 5.8 K/uL (1.8-8.9); NEUTROPHILS % (AUTO) 87.1 % (38.5-71.5); PLATELET COUNT (AUTO) 182 K/uL (179-408); RED BLOOD CELL COUNT(AUTO) 3.62 MIL/uL (3.63-4.92); RED CELL DISTRIBUTION WIDTH 15.5 % (12.3-17.7); WHITE BLOOD COUNT (AUTO) 6.7 K/uL (3.8-11.8)
[2024-05-24 07:03] LABS: DIFFERENTIAL COMMENT 1
[2024-05-24 07:06] LABS: CALCIUM 8.7 mg/dL (8.5-10.1); CARBON DIOXIDE 28 mmol/L (21-32); CHLORIDE 107 mmol/L (98-107); CREATININE 1.1 mg/dL (0.6-1.3); GLUCOSE 121 mg/dL (74-106); MAGNESIUM 2.1 mg/dL (1.8-2.4); PHOSPHOROUS 3.5 mg/dL (2.5-4.9); SODIUM SERUM 141 mmol/L (136-145); UREA NITROGEN, BLOOD 17 mg/dL (7-18)
[2024-05-24 07:20] LABS: POTASSIUM 4.1 mmol/L (3.5-5.1)
[2024-05-24] MEDS ORDERED: ALBUTEROL SULFATE 2.5 MG/ 0.5 ML NEBU NEB SCH (09:00)
[2024-05-24] MEDS ORDERED: Fluticasone/Umeclidin/Vilanter (Trelegy Ellipta 100-62.5 PO SCH (09:00)
[2024-05-24] MEDS ORDERED: Roflumilast (Daliresp) 500 MCG) PO SCH (09:00)
[2024-05-24] MEDS: LIDOCAINE 5% PATCH TD SCH (09:36)
[2024-05-24] MEDS: MONTELUKAST SODIUM 10 MG TABLET PO SCH (09:37)
[2024-05-24] MEDS: TOLTERODINE LA 2 MG CAP.SR.24H PO SCH (09:37)
[2024-05-24] MEDS: VENLAFAXINE XR 75 MG TAB.ER.24H PO SCH (09:38)
[2024-05-24] MEDS: FOLIC ACID 1 MG TABLET PO SCH (09:38)
[2024-05-24] MEDS: METOPROLOL TARTRATE 50 MG TABLET PO SCH (09:38)
[2024-05-24] MEDS: HYDROCHLOROTHIAZIDE 12.5 MG CAPSULE PO SCH (09:38)
[2024-05-24] MEDS: AMLODIPINE 5 MG TABLET PO SCH (09:39)
[2024-05-24] MEDS: IPRATROPIUM BROMIDE 0.5 MG/2.5 ML NEBU NEB SCH (13:25)
[2024-05-24] MEDS: ALBUTEROL SULFATE 2.5 MG/ 0.5 ML NEBU NEB SCH (13:25)
[2024-05-24] MEDS: BUDESONIDE 0.5 MG/2 ML NEBU NEB SCH (19:36)
[2024-05-24] MEDS: methylPREDNISolone SOD SUCC 40 MG/ML VIAL IV SCH (20:23)
[2024-05-24] MEDS: ACETAMINOPHEN 325 MG TABLET PO PRN (23:33)
[2024-05-25] VITALS (15 sets, daily range): BP systolic 116–151; BP diastolic 55–72; TEMP 97.9–98.4; O2SAT 92–100
[2024-05-25 06:44] LABS: BASOPHILS % (AUTO) 0.1 % (0.0-2.0); HEMOGLOBIN 10.9 g/dL (10.9-14.3); LYMPHOCYTES # (AUTO) 1.2 K/uL (0.8-4.8); LYMPHOCYTES % (AUTO) 10.2 % (20.5-51.5); MEAN CORPUSCULAR HEMOGLOBIN 30.2 uug (24.7-32.8); MEAN CORPUSCULAR HGB CONC 33 g/dL (32.3-35.6); MEAN CORPUSCULAR VOLUME 91.4 fL (75.5-95.3); MONOCYTES # (AUTO) 0.3 K/uL (0.1-1.30); MONOCYTES % (AUTO) 2.5 % (0.0-11.0); NEUTROPHILS # (AUTO) 10.2 K/uL (1.8-8.9); NEUTROPHILS % (AUTO) 87.2 % (38.5-71.5); PLATELET COUNT (AUTO) 173 K/uL (179-408); RED BLOOD CELL COUNT(AUTO) 3.61 MIL/uL (3.63-4.92); RED CELL DISTRIBUTION WIDTH 15.5 % (12.3-17.7); WHITE BLOOD COUNT (AUTO) 11.7 K/uL (3.8-11.8)
[2024-05-25 07:04] LABS: CALCIUM 8.9 mg/dL (8.5-10.1); CARBON DIOXIDE 29 mmol/L (21-32); CHLORIDE 105 mmol/L (98-107); CREATININE 1.2 mg/dL (0.6-1.3); GLUCOSE 129 mg/dL (74-106); MAGNESIUM 2.1 mg/dL (1.8-2.4); PHOSPHOROUS 4.3 mg/dL (2.5-4.9); POTASSIUM 4.4 mmol/L (3.5-5.1); SODIUM SERUM 139 mmol/L (136-145); UREA NITROGEN, BLOOD 28 mg/dL (7-18)
[2024-05-25 07:17] LABS: DIFFERENTIAL COMMENT 1
[2024-05-25] MEDS: ACETYLCYSTEINE 20% 800 MG/4 ML VIAL NEB SCH (20:49)
[2024-05-25] MEDS: MELATONIN 3 MG TABLET PO PRN (23:58)
[2024-05-26] VITALS (15 sets, daily range): BP systolic 126–142; BP diastolic 65–70; TEMP 97.8–98.4; O2SAT 93–99
[2024-05-26 06:44] LABS: BASOPHILS % (AUTO) 0.1 % (0.0-2.0); LYMPHOCYTES % (AUTO) 6.9 % (20.5-51.5); MEAN CORPUSCULAR HEMOGLOBIN 30.6 uug (24.7-32.8); MEAN CORPUSCULAR HGB CONC 33 g/dL (32.3-35.6); MEAN CORPUSCULAR VOLUME 91.7 fL (75.5-95.3); MONOCYTES # (AUTO) 0.5 K/uL (0.1-1.30); MONOCYTES % (AUTO) 3.7 % (0.0-11.0); NEUTROPHILS # (AUTO) 12.8 K/uL (1.8-8.9); NEUTROPHILS % (AUTO) 89.3 % (38.5-71.5); PLATELET COUNT (AUTO) 163 K/uL (179-408); RED CELL DISTRIBUTION WIDTH 15.7 % (12.3-17.7); WHITE BLOOD COUNT (AUTO) 14.3 K/uL (3.8-11.8)
[2024-05-26 06:45] LABS: DIFFERENTIAL COMMENT 1
[2024-05-26 06:47] LABS: CALCIUM 9.2 mg/dL (8.5-10.1); CARBON DIOXIDE 29 mmol/L (21-32); CHLORIDE 104 mmol/L (98-107); CREATININE 1.2 mg/dL (0.6-1.3); GLUCOSE 129 mg/dL (74-106); MAGNESIUM 2.1 mg/dL (1.8-2.4); PHOSPHOROUS 4.4 mg/dL (2.5-4.9); POTASSIUM 4.4 mmol/L (3.5-5.1); SODIUM SERUM 140 mmol/L (136-145); UREA NITROGEN, BLOOD 30 mg/dL (7-18)
[2024-05-26] MEDS: methylPREDNISolone SOD SUCC 40 MG/ML VIAL IV SCH (20:25)
[2024-05-27] VITALS (15 sets, daily range): BP systolic 123–138; BP diastolic 53–71; TEMP 97.9–98.6; O2SAT 93–99
[2024-05-27 07:00] LABS: HEMATOCRIT 35.2 % (31.2-41.9); HEMOGLOBIN 11.6 g/dL (10.9-14.3); LYMPHOCYTES # (AUTO) 0.9 K/uL (0.8-4.8); LYMPHOCYTES % (AUTO) 6.6 % (20.5-51.5); MEAN CORPUSCULAR HEMOGLOBIN 30.1 uug (24.7-32.8); MEAN CORPUSCULAR HGB CONC 33 g/dL (32.3-35.6); MEAN CORPUSCULAR VOLUME 91.6 fL (75.5-95.3); MONOCYTES # (AUTO) 0.5 K/uL (0.1-1.30); MONOCYTES % (AUTO) 3.4 % (0.0-11.0); NEUTROPHILS # (AUTO) 12.4 K/uL (1.8-8.9); PLATELET COUNT (AUTO) 160 K/uL (179-408); RED BLOOD CELL COUNT(AUTO) 3.84 MIL/uL (3.63-4.92); RED CELL DISTRIBUTION WIDTH 15.7 % (12.3-17.7); WHITE BLOOD COUNT (AUTO) 13.8 K/uL (3.8-11.8)
[2024-05-27 07:02] LABS: DIFFERENTIAL COMMENT 1
[2024-05-27 07:06] LABS: CALCIUM 8.6 mg/dL (8.5-10.1); CARBON DIOXIDE 31 mmol/L (21-32); CHLORIDE 105 mmol/L (98-107); CREATININE 1.4 mg/dL (0.6-1.3); GLUCOSE 137 mg/dL (74-106); MAGNESIUM 2.1 mg/dL (1.8-2.4); PHOSPHOROUS 3.5 mg/dL (2.5-4.9); POTASSIUM 4.5 mmol/L (3.5-5.1); SODIUM SERUM 142 mmol/L (136-145); UREA NITROGEN, BLOOD 34 mg/dL (7-18)
[2024-05-27] MEDS: IV 1/2NS 1000 ML 1,000 ML IV ONE ×2 (08:07→09:32)
[2024-05-27] MEDS: predniSONE 20 MG TABLET PO SCH (17:13)
[2024-05-28] VITALS (11 sets, daily range): BP systolic 112–147; BP diastolic 54–79; TEMP 97.5–98.6; O2SAT 90–99
[2024-05-28 06:41] LABS: BASOPHILS % (AUTO) 0.3 % (0.0-2.0); HEMATOCRIT 35.1 % (31.2-41.9); HEMOGLOBIN 11.7 g/dL (10.9-14.3); LYMPHOCYTES # (AUTO) 1.5 K/uL (0.8-4.8); LYMPHOCYTES % (AUTO) 13.2 % (20.5-51.5); MEAN CORPUSCULAR HEMOGLOBIN 30.5 uug (24.7-32.8); MEAN CORPUSCULAR HGB CONC 33 g/dL (32.3-35.6); MEAN CORPUSCULAR VOLUME 91.4 fL (75.5-95.3); MONOCYTES # (AUTO) 0.7 K/uL (0.1-1.30); MONOCYTES % (AUTO) 6.3 % (0.0-11.0); NEUTROPHILS # (AUTO) 9.3 K/uL (1.8-8.9); NEUTROPHILS % (AUTO) 80.2 % (38.5-71.5); PLATELET COUNT (AUTO) 151 K/uL (179-408); RED BLOOD CELL COUNT(AUTO) 3.84 MIL/uL (3.63-4.92); RED CELL DISTRIBUTION WIDTH 15.7 % (12.3-17.7); WHITE BLOOD COUNT (AUTO) 11.6 K/uL (3.8-11.8)
[2024-05-28 06:53] LABS: CALCIUM 8.5 mg/dL (8.5-10.1); CARBON DIOXIDE 31 mmol/L (21-32); CHLORIDE 104 mmol/L (98-107); CREATININE 1.1 mg/dL (0.6-1.3); GLUCOSE 96 mg/dL (74-106); PHOSPHOROUS 3.4 mg/dL (2.5-4.9); POTASSIUM 4.2 mmol/L (3.5-5.1); SODIUM SERUM 142 mmol/L (136-145); UREA NITROGEN, BLOOD 33 mg/dL (7-18)
[2024-05-28 06:57] LABS: DIFFERENTIAL COMMENT 1
[2024-05-28] MEDS ORDERED: BISACODYL 10 MG SUPP.RECT RC PRN (08:30)
[2024-05-28] MEDS ORDERED: METH4TAB3 PO (11:08)
[2024-05-28] MEDS ORDERED: IPRATROPIUM BROMIDE 0.5 MG/2.5 ML NEBU ONE (13:29)
[2024-05-28] MEDS ORDERED: ALBUTEROL SULFATE 2.5 MG/ 0.5 ML NEBU ONE (13:29)
[2024-05-29 00:50] VITALS: O2SAT 91
[2024-05-29 01:00] VITALS: O2SAT 98
[2024-05-29 05:41] VITALS: BP 147/64; TEMP 97.7; O2SAT 91
[2024-05-29 07:20] VITALS: O2SAT 92
[2024-05-29 07:30] VITALS: O2SAT 98
[2024-05-29 11:22] VITALS: BP 120/65; TEMP 98.2; O2SAT 98
== END 2024-05-29 12:30 | disposition home or self-care (01) | DRG 190 ==
LOC: ER 07:37 → TELE3 13:32 → MEDSURG3 05-25 08:30
DX: J44.1 Chronic obstructive pulmonary disease with (acute) exacerbation (principal); J15.9 Unspecified bacterial pneumonia; I13.0 Hypertensive heart and chronic kidney disease with heart failure and stage 1 through stage 4 chronic kidney disease, or unspecified chronic kidney disease; I50.32 Chronic diastolic (congestive) heart failure; N17.9 Acute kidney failure, unspecified; J98.11 Atelectasis; F17.210 Nicotine dependence, cigarettes, uncomplicated; Z88.0 Allergy status to penicillin; N18.2 Chronic kidney disease, stage 2 (mild); E78.5 Hyperlipidemia, unspecified; F41.9 Anxiety disorder, unspecified; F32.A Depression, unspecified; S20.211A Contusion of right front wall of thorax, initial encounter; W01.0XXA Fall on same level from slipping, tripping and stumbling without subsequent striking against object, initial encounter; Z86.0100 Personal history of colon polyps, unspecified; Z90.2 Acquired absence of lung [part of]; Z82.5 Family history of asthma and other chronic lower respiratory diseases; Z79.899 Other long term (current) drug therapy; J43.2 Centrilobular emphysema; J47.9 Bronchiectasis, uncomplicated; I27.20 Pulmonary hypertension, unspecified; E78.00 Pure hypercholesterolemia, unspecified; K44.9 Diaphragmatic hernia without obstruction or gangrene; Z90.49 Acquired absence of other specified parts of digestive tract; J44.0 Chronic obstructive pulmonary disease with (acute) lower respiratory infection
CPT/HCPCS: 36415; 70450; 71045; 71250; 83735; 84100; 85025; 86140; 93005; 93307; 94640; 94664; 94760; A4606; A4663; A9150; G0378; J0456; J1956; J2919; J3420; J3590; J7512

== ENCOUNTER 2024-10-26 15:32 | Inpatient (IN) | payer MEDICARE, OTHER ==
[~2024-10-26] VITALS: Ht 157.5 cm; Wt 60.9 kg
[~2024-10-26 15:32] MED LIST changes: -ACID1TAB4 PO; +ALBU2.5V13 NEB; -ALBU2.5V7 NEB; +ALBU8.5H8 PO; +AMLO-212 PO; +AZEL137S7 BNOSTRILS; +BENZ200C53 PO; +BUPR-53 PO; -BUPR-96 PO; +CYAN10006 IM; +CYCL5.5D EACHEYE; +DICL100G31 TP; +DOXY100T2 PO; -FLUT1BLS INH; +FLUT1BLS6 PO; +FOLI1TAB27 PO; -FOLI1TAB94 PO; +GABA-532 PO; +GUAI400T93 PO; +HYDR12.55 PO; +IBUP200C5 PO; -IPRA0.2S6 NEB; -LEVO750T46 PO; -MULT-1045 PO; +NEBI10TA2 PO; -PANT40TA49 PO; -PROT30LI PO; +ROFL500T PO; -SOD62.5V IV; +TOLT4CAP PO
[2024-10-26] MEDS ORDERED: LEVO500T90 PO (15:45)
[2024-10-26] MEDS ORDERED: IPRATROPIUM BROMIDE 0.5 MG/2.5 ML NEBU ONE (16:07)
[2024-10-26] MEDS ORDERED: ALBUTEROL SULFATE 2.5 MG/3 ML NEBU ONE (16:07)
[2024-10-26 16:11] VITALS: O2SAT 99
[2024-10-26] MEDS: IPRATROPIUM BROMIDE 0.5 MG/2.5 ML NEBU NEB ONE (16:12)
[2024-10-26] MEDS: ALBUTEROL SULFATE 2.5 MG/3 ML NEBU NEB ONE (16:12)
[2024-10-26 16:38] LABS: PLATELET COUNT (AUTO) 166 K/uL (179-408); RED BLOOD CELL COUNT(AUTO) 3.89 MIL/uL (3.63-4.92); RED CELL DISTRIBUTION WIDTH 15.4 % (12.3-17.7); WHITE BLOOD COUNT (AUTO) 7.6 K/uL (3.8-11.8)
[2024-10-26 16:52] LABS: SODIUM SERUM 139 mmol/L (136-145); UREA NITROGEN, BLOOD 25 mg/dL (7-18)
[2024-10-26 16:53] LABS: CREATININE 1.4 mg/dL (0.6-1.3)
[2024-10-26 16:59] LABS: ASPARTATE AMINOTRANSFERASE 8 U/L (15-37); TOTAL PROTEIN, SERUM 6.4 g/dL (6.4-8.2)
[2024-10-26 17:10] VITALS: O2SAT 99
[2024-10-26] MEDS ORDERED: ONDANSETRON 4 MG/2 ML VIAL IV PRN (19:00)
[2024-10-26] MEDS ORDERED: REMEDY ESSENTIAL ZINC PASTE 113 GM TP PRN (19:00)
[2024-10-26] MEDS ORDERED: MAGNESIUM HYDROXIDE 30 ML LIQUID UDC PO PRN (19:00)
[2024-10-26] MEDS ORDERED: ACETAMINOPHEN 325 MG TABLET PO PRN (19:00)
[2024-10-26] MEDS ORDERED: DEXAMETHASONE SOD PHOSPHATE 4 MG INJ ONE (19:49)
[2024-10-26] MEDS ORDERED: HYDROCODONE/APAP 5-325MG TABLET ONE (19:49)
[2024-10-26 21:30] VITALS: O2SAT 98
[2024-10-26 21:31] VITALS: BP 119/66
[2024-10-26] MEDS: DOXYCYCLINE HYCLATE 100 MG TABLET PO SCH (23:36)
[2024-10-27] VITALS (13 sets, daily range): BP systolic 94–132; BP diastolic 43–63; TEMP 97.8–98.7; O2SAT 90–100
[2024-10-27] MEDS: PANTOPRAZOLE SODIUM 40 MG TABLET.DR PO SCH (06:27)
[2024-10-27 06:57] LABS: PLATELET COUNT (AUTO) 155 K/uL (179-408); RED BLOOD CELL COUNT(AUTO) 3.50 MIL/uL (3.63-4.92); RED CELL DISTRIBUTION WIDTH 15.1 % (12.3-17.7); WHITE BLOOD COUNT (AUTO) 6.9 K/uL (3.8-11.8)
[2024-10-27 07:22] LABS: CREATININE 1.4 mg/dL (0.6-1.3); SODIUM SERUM 142 mmol/L (136-145); UREA NITROGEN, BLOOD 19 mg/dL (7-18)
[2024-10-27] MEDS: IPRATROPIUM BROMIDE 0.5 MG/2.5 ML NEBU NEB SCH (08:00)
[2024-10-27] MEDS: ALBUTEROL SULFATE 2.5 MG/3 ML NEBU NEB SCH (08:00)
[2024-10-27] MEDS: AMLODIPINE 5 MG TABLET PO SCH (09:11)
[2024-10-27] MEDS: MONTELUKAST SODIUM 10 MG TABLET PO SCH (09:11)
[2024-10-27] MEDS: buPROPion XL 150 MG TAB.SR.24H PO SCH (09:12)
[2024-10-27] MEDS: VENLAFAXINE XR 75 MG TAB.ER.24H PO SCH (09:12)
[2024-10-27] MEDS: FOLIC ACID 1 MG TABLET PO SCH (09:13)
[2024-10-27] MEDS ORDERED: DOSING BY PHARMACY-MD TO SPECIFY MED/ROUTE XX PRN (09:30)
[2024-10-27] MEDS ORDERED: ASPI-1420 PO (10:55)
[2024-10-27] MEDS: METOPROLOL TARTRATE 50 MG TABLET PO SCH (11:21)
[2024-10-27] MEDS: VANCOMYCIN IV 500 MG in IV DEXTROSE 5% 100 ML IV SCH (13:28)
[2024-10-27] MEDS ORDERED: IV NORMAL SALINE 250 ML IV ONE (14:14)
[2024-10-27] MEDS ORDERED: IOHEXOL 350 100 ML INFUS..BTL ONE (14:14)
[2024-10-27] MEDS: PRAMIPEXOLE 0.25 MG TABLET PO SCH (20:23)
[2024-10-27] MEDS: GABAPENTIN 100 MG CAPSULE PO SCH (20:23)
[2024-10-28] VITALS (11 sets, daily range): BP systolic 94–120; BP diastolic 55–64; TEMP 98.1–98.9; O2SAT 92–99
[2024-10-28 06:46] LABS: PLATELET COUNT (AUTO) 145 K/uL (179-408); RED BLOOD CELL COUNT(AUTO) 3.75 MIL/uL (3.63-4.92); RED CELL DISTRIBUTION WIDTH 15.5 % (12.3-17.7); WHITE BLOOD COUNT (AUTO) 5.8 K/uL (3.8-11.8)
[2024-10-28 07:06] LABS: CREATININE 1.2 mg/dL (0.6-1.3); SODIUM SERUM 140 mmol/L (136-145); UREA NITROGEN, BLOOD 17 mg/dL (7-18)
[2024-10-28 07:54] LABS: ABG BASE EXCESS 0.7 mmol/L (-2.0-3.0); ABG HCO3 26.3 mmol/L (21.0-28.0); ABG PCO2 46.0 mmHg (32.0-45.0); ABG PH 7.375 (7.350-7.450); ABG PO2 52.6 mmHg (83.0-108.0); ABG TOTAL HEMOGLOBIN 12.1 G/dL (12.0-16.0); AaDO2 86.2 mmHg; FIO2 28.0 %; FLOW, BLOOD GAS 2.00 L/min (0.00-30.00)
[2024-10-28] MEDS ORDERED: GUAIFENESIN/DEXTROMETHORPHAN 5 ML UDC PO PRN (22:15)
[2024-10-29] VITALS (8 sets, daily range): BP systolic 104–119; BP diastolic 57–59; TEMP 97.6–98.2; O2SAT 94–99
[2024-10-29 06:33] LABS: PLATELET COUNT (AUTO) 142 K/uL (179-408); RED BLOOD CELL COUNT(AUTO) 3.71 MIL/uL (3.63-4.92); RED CELL DISTRIBUTION WIDTH 15.9 % (12.3-17.7); WHITE BLOOD COUNT (AUTO) 6.1 K/uL (3.8-11.8)
[2024-10-29 06:49] LABS: CREATININE 1.1 mg/dL (0.6-1.3); SODIUM SERUM 139 mmol/L (136-145); UREA NITROGEN, BLOOD 17 mg/dL (7-18)
[2024-10-29] MEDS: TRELEGY ELIPTA INH SCH (08:14)
[2024-10-29] MEDS ORDERED: DOXY-326 PO (10:02)
[2024-10-30] MEDS ORDERED: DOXY100C5 PO (11:15)
== END 2024-10-29 18:15 | DRG 190 ==
LOC: ER 15:32 → TELE3 22:33 → MEDSURG3 10-27 11:20
PROVIDERS: ADMIT Nurse Practitioner Family; ATTEND Nurse Practitioner Family
DX: J44.1 Chronic obstructive pulmonary disease with (acute) exacerbation (principal); J96.21 Acute and chronic respiratory failure with hypoxia; N17.0 Acute kidney failure with tubular necrosis; E44.1 Mild protein-calorie malnutrition; I50.32 Chronic diastolic (congestive) heart failure; I13.0 Hypertensive heart and chronic kidney disease with heart failure and stage 1 through stage 4 chronic kidney disease, or unspecified chronic kidney disease; L03.116 Cellulitis of left lower limb; E88.09 Other disorders of plasma-protein metabolism, not elsewhere classified; E78.5 Hyperlipidemia, unspecified; I27.20 Pulmonary hypertension, unspecified; N18.9 Chronic kidney disease, unspecified; N32.81 Overactive bladder; F32.A Depression, unspecified; F41.9 Anxiety disorder, unspecified; F17.210 Nicotine dependence, cigarettes, uncomplicated; S00.83XA Contusion of other part of head, initial encounter; S90.02XA Contusion of left ankle, initial encounter; W18.30XA Fall on same level, unspecified, initial encounter; Z99.81 Dependence on supplemental oxygen; Z90.2 Acquired absence of lung [part of]; Z88.0 Allergy status to penicillin; Z90.49 Acquired absence of other specified parts of digestive tract; Z79.899 Other long term (current) drug therapy; Y92.89 Other specified places as the place of occurrence of the external cause
CPT/HCPCS: 36415; 36600; 71045; 71275; 82803; 83605; 83735; 84100; 84484; 85025; 87040; 87070; 94640; 94760; A4606; G0378; J1100; J3373; J3590; Q9967

== ENCOUNTER 2024-10-29 12:55 | Inpatient (IN) | payer MEDICARE, OTHER ==
[~2024-10-29] VITALS: Ht 157.5 cm; Wt 60.8 kg
[~2024-10-29 12:55] MED LIST changes: -ALBU2.5V13 NEB; +ASPI-1420 PO; -BENZ200C53 PO; +DOXY-326 PO; -DOXY100T2 PO; -IBUP200C5 PO; +LEVO500T90 PO; -METH4TAB3 PO
[2024-10-29 14:05] VITALS: BP 104/57; TEMP 98.2
[2024-10-29 15:49] VITALS: BP 104/57; TEMP 98.2
[2024-10-29 19:00] VITALS: BP 109/51; TEMP 97.8; O2SAT 98
[2024-10-29] MEDS ORDERED: ACETAMINOPHEN 325 MG TABLET-SA PATIENTS-PAIN ONLY PO PRN (19:00)
[2024-10-29] MEDS ORDERED: ALBUTEROL SULFATE 8 GM HFA.AER.AD IH PRN (19:00)
[2024-10-29 20:36] VITALS: BP 102/55; TEMP 97.5; O2SAT 96
[2024-10-29] MEDS: PRAMIPEXOLE 0.25 MG TABLET PO SCH (21:43)
[2024-10-29] MEDS: GABAPENTIN 100 MG CAPSULE PO SCH (21:43)
[2024-10-29] MEDS ORDERED: REMEDY ESSENTIAL ZINC PASTE 113 GM TOP PRN (22:45)
[2024-10-30] MEDS: GUAIFENESIN SUGAR FREE 100 MG/5 ML UDC PO PRN (00:08)
[2024-10-30 06:45] VITALS: BP 114/53; TEMP 97.6; O2SAT 90
[2024-10-30] MEDS ORDERED: ALBUTEROL SULFATE 2.5 MG/3 ML NEBU NEB PRN (07:30)
[2024-10-30 08:10] VITALS: BP 124/52; TEMP 98; O2SAT 97
[2024-10-30] MEDS: MONTELUKAST SODIUM 10 MG TABLET PO SCH (08:33)
[2024-10-30] MEDS: VENLAFAXINE XR 75 MG TAB.ER.24H PO SCH (08:33)
[2024-10-30] MEDS: ASPIRIN EC 81 MG TABLET.DR PO SCH (08:33)
[2024-10-30] MEDS: buPROPion XL 150 MG TAB.SR.24H PO SCH (08:33)
[2024-10-30] MEDS: DOXYCYCLINE HYCLATE 100 MG TABLET PO SCH ×2 (08:33→20:52)
[2024-10-30] MEDS: AMLODIPINE 5 MG TABLET PO SCH (08:33)
[2024-10-30] MEDS: FOLIC ACID 1 MG TABLET PO SCH (08:34)
[2024-10-30] MEDS ORDERED: DOXY100C5 PO (11:15)
[2024-10-30 16:27] VITALS: BP 111/52; TEMP 97.7; O2SAT 98
[2024-10-30] MEDS: Fluticasone/Umeclidin/Vilanter (Trelegy Ellipta 100-62.5) PO SCH (18:57)
[2024-10-30 21:10] VITALS: O2SAT 90
[2024-10-30] MEDS: ALBUTEROL SULFATE 2.5 MG/3 ML NEBU NEB SCH (21:24)
[2024-10-30 21:26] VITALS: O2SAT 94
[2024-10-30 23:04] VITALS: BP 112/52; TEMP 98.2; O2SAT 96
[2024-10-31] VITALS (9 sets, daily range): BP systolic 109–138; BP diastolic 48–65; TEMP 97.2–98; O2SAT 95–99
[2024-10-31] MEDS: ACETAMINOPHEN 325 MG TABLET PO PRN (15:05)
[2024-11-01] VITALS (9 sets, daily range): BP systolic 112–128; BP diastolic 51–68; TEMP 97.7–98; O2SAT 92–100
[2024-11-01] MEDS: ALBUTEROL SULFATE 2.5 MG/3 ML NEBU NEB SCH (07:51)
[2024-11-02] VITALS (7 sets, daily range): BP systolic 119–131; BP diastolic 56–65; TEMP 97.9–98; O2SAT 93–98
[2024-11-02] MEDS: MAGNESIUM HYDROXIDE 30 ML LIQUID UDC PO ONE (19:53)
[2024-11-02] MEDS: SENNOSIDES/DOCUSATE SODIUM TABLET PO ONE (19:53)
[2024-11-03] VITALS (8 sets, daily range): BP systolic 116–138; BP diastolic 54–66; TEMP 97.4–98; O2SAT 92–100
[2024-11-03] MEDS: LIDOCAINE 5% PATCH TD SCH (21:08)
[2024-11-04] VITALS (7 sets, daily range): BP systolic 98–121; BP diastolic 43–58; TEMP 97.8–98; O2SAT 92–100
[2024-11-05] VITALS (10 sets, daily range): BP systolic 115–140; BP diastolic 63–78; TEMP 97.8–98.1; O2SAT 92–97
[2024-11-05] MEDS ORDERED: ALBUTEROL SULFATE 2.5 MG/3 ML NEBU NEB PRN (10:00)
[2024-11-05 10:18] LABS: PLATELET COUNT (AUTO) 186 K/uL (179-408); RED BLOOD CELL COUNT(AUTO) 3.81 MIL/uL (3.63-4.92); RED CELL DISTRIBUTION WIDTH 15.7 % (12.3-17.7); WHITE BLOOD COUNT (AUTO) 5.7 K/uL (3.8-11.8)
[2024-11-05 10:25] LABS: CREATININE 1.2 mg/dL (0.6-1.3); SODIUM SERUM 141 mmol/L (136-145); UREA NITROGEN, BLOOD 24 mg/dL (7-18)
[2024-11-05 10:31] LABS: ASPARTATE AMINOTRANSFERASE 13 U/L (15-37); TOTAL PROTEIN, SERUM 6.2 g/dL (6.4-8.2)
[2024-11-05 12:18] LABS: *BILIRUBIN,URIN NEGATIVE (NEGATIVE); *BLOOD, URINE NEGATIVE (NEGATIVE); *COLOR,URINE YELLOW (YELLOW); *KETONES,URINE NEGATIVE (NEGATIVE); *PROTEIN,URINE NEGATIVE (NEGATIVE); *UROBILINOGEN,URINE 0.2 E.U./dl (NORMAL); LEUKOCYTE ESTERASE ,URINE 1+ (NEGATIVE); NITRITE, URINE NEGATIVE (NEGATIVE); UGLUCOSE NEGATIVE (NEGATIVE)
[2024-11-05 13:03] LABS: SQUAMOUS EPITHELIAL CELL,UR FEW /HPF (NONE SEEN)
[2024-11-05 13:04] LABS: *CLARITY,URINE SLIGHTLY HAZY (CLEAR); URINE AMORPHOUS URATE FEW /HPF
[2024-11-05] MEDS: ALBUTEROL SULFATE 2.5 MG/3 ML NEBU NEB SCH (14:04)
[2024-11-05] MEDS: IPRATROPIUM BROMIDE 0.5 MG/2.5 ML NEBU NEB SCH (14:04)
[2024-11-05] MEDS: BUDESONIDE 0.5 MG/2 ML NEBU NEB SCH (19:42)
[2024-11-06] VITALS (10 sets, daily range): BP systolic 127–136; BP diastolic 59–72; TEMP 97.3–98.2; O2SAT 94–100
[2024-11-06 08:02] LABS: PLATELET COUNT (AUTO) 180 K/uL (179-408); RED BLOOD CELL COUNT(AUTO) 3.47 MIL/uL (3.63-4.92); RED CELL DISTRIBUTION WIDTH 15.8 % (12.3-17.7); WHITE BLOOD COUNT (AUTO) 6.4 K/uL (3.8-11.8)
[2024-11-06 08:15] LABS: CREATININE 1.3 mg/dL (0.6-1.3); SODIUM SERUM 141 mmol/L (136-145); UREA NITROGEN, BLOOD 27 mg/dL (7-18)
[2024-11-07] VITALS (8 sets, daily range): BP systolic 132–142; BP diastolic 67–74; TEMP 97.6–98.3; O2SAT 95–99
[2024-11-08] VITALS (10 sets, daily range): BP systolic 117–144; BP diastolic 60–71; TEMP 97.4–98.4; O2SAT 94–99
[2024-11-08] MEDS ORDERED: BENZONATATE 100 MG CAPSULE PO PRN (09:30)
[2024-11-09] VITALS (9 sets, daily range): BP systolic 122–136; BP diastolic 71–79; TEMP 97.4–98.2; O2SAT 91–98
[2024-11-10] VITALS (7 sets, daily range): BP systolic 128–142; BP diastolic 65–70; TEMP 97.2–98; O2SAT 91–99
[2024-11-21] MEDS ORDERED: CYANOCOBALAMIN 1000 MCG/ML VIAL IM SCH (09:00)
== END 2024-11-10 15:00 | disposition home or self-care (01) | DRG 189 ==
LOC: UNDODISIN 11-10 15:00
PROVIDERS: ADMIT Physical Medicine & Rehabilitation Pain Medicine; ATTEND Physical Medicine & Rehabilitation Pain Medicine
DX: J96.21 Acute and chronic respiratory failure with hypoxia (principal); J18.9 Pneumonia, unspecified organism; N17.0 Acute kidney failure with tubular necrosis; J44.0 Chronic obstructive pulmonary disease with (acute) lower respiratory infection; I50.32 Chronic diastolic (congestive) heart failure; D68.59 Other primary thrombophilia; E44.1 Mild protein-calorie malnutrition; J44.1 Chronic obstructive pulmonary disease with (acute) exacerbation; I13.0 Hypertensive heart and chronic kidney disease with heart failure and stage 1 through stage 4 chronic kidney disease, or unspecified chronic kidney disease; L03.116 Cellulitis of left lower limb; L97.929 Non-pressure chronic ulcer of unspecified part of left lower leg with unspecified severity; I11.0 Hypertensive heart disease with heart failure; D50.9 Iron deficiency anemia, unspecified; E78.5 Hyperlipidemia, unspecified; E88.09 Other disorders of plasma-protein metabolism, not elsewhere classified; I27.20 Pulmonary hypertension, unspecified; F17.210 Nicotine dependence, cigarettes, uncomplicated; F32.A Depression, unspecified; F41.9 Anxiety disorder, unspecified; K21.9 Gastro-esophageal reflux disease without esophagitis; M19.90 Unspecified osteoarthritis, unspecified site; M51.369 Other intervertebral disc degeneration, lumbar region without mention of lumbar back pain or lower extremity pain; N18.2 Chronic kidney disease, stage 2 (mild); Z82.5 Family history of asthma and other chronic lower respiratory diseases; Z88.0 Allergy status to penicillin; Z90.49 Acquired absence of other specified parts of digestive tract; S00.11XD Contusion of right eyelid and periocular area, subsequent encounter; W01.0XXD Fall on same level from slipping, tripping and stumbling without subsequent striking against object, subsequent encounter
CPT/HCPCS: 36415; 71045; 83735; 84100; 85025; 87086; 94640; 94760; 97535-GO-CO; A4663; J3535; J3590; J7512